=== PATIENT | female | born 1990 | race Caucasian/White ===

== ENCOUNTER 2023-04-27 20:01 | Emergency (ER) | payer OTHER, SELFPAY ==
[2023-04-27 20:22] VITALS: BP 149/103; PULSE 83; RESP 16; TEMP 37.2; O2SAT 98; BMI 40.2
--- NOTE | 2023-04-27 20:48 | ED_ITS ---
HPI - General Adult General Chief complaint: Nausea/Vomiting Stated complaint: Chest pain, nauseous Time Seen by Provider: 04/27/23 20:38 History of Present Illness HPI narrative: This 32-year-old female comes in reporting a couple days of feeling generalized malaise with some nausea and a few episodes of vomiting and diarrhea. She does not report any fevers. She does not have a cough or upper respiratory symptoms. 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 Related Data Home Medications Medication Instructions Recorded Confirmed dextroamphetamine-amphetamine 10 1 tab PO BID 04/27/23 04/27/23 mg tablet norethindrone acetate 1 mg-ethinyl 1 tab PO DAILY 04/27/23 04/27/23 estradiol 20 mcg tablet (Junel) Allergies Allergy/AdvReac Type Severity Reaction Status Date / Time Latex, Natural Rubber Allergy Mild Rash Verified 04/27/23 20:21 Review of Systems Status of ROS: Reports: 10 or more systems reviewed and unremarkable except as noted in History and below Narrative: Constitutional: No fevers, no weight gain or loss. Eyes: No discharge. No vision changes. HENT: No congestion, no sore throat, no ear pain. Cardiovascular: No chest pain, no palpitations. Respiratory: No shortness of breath, no wheezes, no cough. Gastrointestinal: No abdominal pain. Nausea and vomiting with some diarrhea as described above. Genitourinary: No dysuria, no hematuria. Musculoskeletal: Normal range of motion. Skin: No rashes, no pruritis. Neurological: No dizziness, weakness, sensory change, speech change. Endo/Heme/Allergies: No bruising or bleeding. No polydipsia. Pysch: no suicidality, no anxiety, no insomnia. All other systems reviewed and are negative. [facility] Social History Smoking Status: Former smoker How often do you have a drink containing alcohol: never How often do you have six or more drinks on one occasion: Never AUDIT-C Alcohol total score: 0 Non-prescribed substance use: marijuana (any form) Exam Narrative: Exam Narrative: Constitutional: Well-developed, well-nourished, no acute distress. HEENT: Normocephalic, atraumatic. Neck: Normal range of motion. Nontender. Supple. Heart: Regular. No murmurs. Normal rate. Intact distal pulses. Lungs: Clear to auscultation. No chest discomfort. No wheezes, rhonchi, or rales. Abdomen: Normal bowel sounds. Nontender. No rebound tenderness. Genitalia: Deferred. Back: No midline tenderness. Normal range of motion. Extremities: Normal range of motion. No injury. Skin: Intact. No rash. Warm. No erythema or pallor. Neurologic: No altered sensation. No weakness. Alert and oriented. Psychiatric: No suicidality. No anxiety or depression. No insomnia. Nursing notes and vitals signs are reviewed. Const: Vital Signs, click to edit/add: Vital Signs - 24 hr 04/27/23 20:22 Temperature 98.9 F Pulse Rate [Right Pulse Oximeter] 83 Respiratory Rate 16 Blood Pressure [Ri ght Upper Arm] 149/103 H Pulse Oximetry 98 Oxygen Delivery Me thod Room Air Course Vital Signs Vital signs: Initial Vital Signs Temperature 98.9 F 04/27/23 20:22 Temperature Source Temporal Artery Scan 04/27/23 20:22 Pulse Rate 83 04/27/23 20:22 Pulse Rhythm Regular 04/27/23 20:22 Respiratory Rate 16 04/27/23 20:22 Blood Pressure 149/103 H 04/27/23 20:22 Blood Pressure Mean 118 H 04/27/23 20:22 Blood Pressure Position Sitting 04/27/23 20:22 Pulse Oximetry 98 04/27/23 20:22 Oxygen Delivery Method Room Air 04/27/23 20:22 Vital Signs Temperature 98.9 F 04/27/23 20:22 Pulse Rate 83 04/27/23 20:22 Respiratory Rate 16 04/27/23 20:22 Blood Pressure 149/103 H 04/27/23 20:22 Pulse Oximetry 98 04/27/23 20:22 Oxygen Delivery Method Room Air 04/27/23 20:22 Temperature 98.9 F 04/27/23 20:22 Pulse Rate 83 04/27/23 20:22 Respiratory Rate 16 04/27/23 20:22 Blood Pressure 149/103 H 04/27/23 20:22 Pulse Oximetry 98 04/27/23 20:22 Oxygen Delivery Method Room Air 04/27/23 20:22 Medical Decision Making MDM Narrative Medical decision making narrative: This patient has symptoms as described above. Nasal and throat swabs returned negative for COVID, influenza, RSV, and strep. The patient states that she needs a note to return to work and this is provided for her. She is encouraged use [id number] medicines as needed is and directed. She does have some nausea medicine that she can use if needed also. Lab Data Labs: Lab Results 04/27/23 Range/Units 20:15 SARS-CoV-2 (PCR) Negative SARS-CoV-2 (Negative) Influenza Type A (PCR) Negative PCR FLU A (Negative) Influenza Type B (PCR) Negative PCR FLU B (Negative) RSV (PCR) Negative PCR RSV (Negative) Group A Strep DNA NOT DETECTED (Not Detectd) Discharge Plan Discharge Clinical Impression: Gastroenteritis Patient Disposition: Home, Self-Care Condition: Stable Additional Instructions: Use nausea medicine and [id number] medicines as needed and directed. Follow up with MD return if worsening. Prescriptions: No Action dextroamphetamine-amphetamine 10 mg tablet 1 tab PO BID norethindrone ac-eth estradiol [08/05 (21)] 1-20 mg-mcg tablet 1 tab PO DAILY Follow Up/Referrals: Provider,Not a Local [Primary Care Provider] - Stand Alone Forms: [employer] Info Instructions
[2023-04-27 21:04] LABS: Strep A DNA Probe* NOT DETECTED (Not Detectd)
[2023-04-27 21:10] LABS: PCR FLU A Negative PCR FLU A (Negative); PCR FLU B Negative PCR FLU B (Negative); PCR RSV Negative PCR RSV (Negative)
[2023-04-27 21:29] LABS: SARS PCR* Negative SARS-CoV-2 (Negative)
== END 2023-04-27 21:42 | disposition home or self-care (01) ==
PROVIDERS: Emergency Provider Emergency Medicine Emergency Medical Services
DX: K52.9 Noninfective gastroenteritis and colitis, unspecified (principal)
CPT/HCPCS: 87631; 87651; 99282; 99283; 99284

== ENCOUNTER 2024-04-26 11:16 | Outpatient (CLI) | payer OTHER, SELFPAY ==
--- OUTSIDE RECORDS SUMMARY | 2024-04-26 11:19 | XMS_ITS | Clinical Summary ---
Author Organization [facility] Address [place], [place] [address] Care Team Providers Care Manager Secondary Name Role Phone [facility] - Primary C are Provider Allergies Active Allergy Reactions Criticality Noted Date Comments Buspirone Other - Describe In Comment Field High 06/02/2022 Suicidal tendencies Cefaclor Hives,Other - Descri be In Comment Field 11/29/2006 Cerner listed no reactions Latex Rash,Hives,Other - Describe In Comment Field 05/15/2014 Blister like looking things Venlafaxine Other - Describe In Comment Field High 06/02/2022 Suicidal tendencies Medications Medication Sig Dispensed Refills Start Date End Date Status acetaminophen (TYLENOL EXTRA STRGTH) 500 mg tablet Take 500 mg by mouth every 6 hours if needed. Max acetaminophen dose: 4000mg in 24 hrs. Active venlafaxine (EFFEXOR XR) 150 mg Extended-Release capsule Take 150 mg by mouth once daily. Active Adderall XR 20 mg Extended-Release capsule Take 20 mg by mouth once daily. 04/01/2021 Active busPIRone (BUSPAR) 5 mg tablet Take 5 mg by mouth 2 times daily. 04/09/2021 Active melatonin 3 mg tablet Take 3 mg by mouth at bedtime. Active meclizine (ANTIVERT) 25 mg tabletIndications :Lightheadedness Take 1 Tablet (25 mg) by mouth 3 times daily if needed for Vertigo. 20 tablet. 08/07/2021 Active ibuprofen (ADVIL; MOTRIN) 600 mg tabletIndications :Closed avulsion fracture of metatarsal bone of right foot, initial encounter Take 1 Tablet (600 mg) by mouth every 6 hours if needed for Pain. Maximum of 3200 mg in 24 hours. 20 Tablet 10/23/2021 Active norethindrone-eth inyl estradiol (LOESTRIN 08/05; JUNEL 08/05) 1-20 mg-mcg tabletIndications :Dysfunctional uterine bleeding Take 1 Tablet by mouth once daily. 21 Tablet 02/25/2023 Active tiZANidine (ZANAFLEX) 4 mg tabletIndications :Fall, initial encounter,Injury of head, initial encounter,Strain of neck muscle, initial encounter Take 1 Tablet (4 mg) by mouth every 6 hours if needed for Muscle Spasm. 20 Tablet 06/19/2023 Active ibuprofen (ADVIL; MOTRIN) 600 mg tabletIndications :Injury of head, initial encounter,Strain of neck muscle, initial encounter Take 1 Tablet (600 mg) by mouth 4 times daily if needed for Pain. Maximum of 3200 mg in 24 hours. 40 Tablet 06/19/2023 Active lidocaine 5 % topical patchIndications: Strain of neck muscle, initial encounter Apply to intact skin to cover most painful area for max 12hr per 24hr period. 30 Patch 06/19/2023 Active benzonatate (TESSALON) 100 mg capsuleIndication s:Sore throat Take 1 Capsule (100 mg) by mouth 3 times daily if needed for Cough. 15 Capsule 12/10/2023 Active benzonatate (TESSALON) 100 mg capsuleIndication s:Viral URI Take 1 Capsule (100 mg) by mouth 3 times daily if needed for Cough. 15 Capsule 12/10/2023 Active Active Problems Problem Noted Date Diagnosed Date Pre-eclampsia in third trimester 11/10/2015 malposition, delivered, current hospitaliz ation 11/10/2015 Nausea with vomiting 07/27/2012 Borderline personality disorder 07/05/2012 Bipolar I disorder, most rec ent episode (or current) unspecified 10/24/2011 Drug use 10/10/2011 Chlamydia 10/10/2011 Adjustment disorder with depressed mood 04/28/20 09 Attention deficit disorder without mention of hy peractivity 10/29/2007 Otalgia, unspecified 01/01/2007 Overview (01/01/2007): Chronic from scarring from repeated OM and PE tubes, multiple; chronic left perforation Resolved Problems Problem Noted Date Diagnosed Date Resolved Date Morbid obesity 01/01/2007 01/30/2009 Overview (01/01/2007): BMI 38 Encounters Date Type Department Care Team Description 04/23/2024 9:39 PM CDT - 04/23/2024 11:04 PM CDT Emergency [facility] [address] [place] [address] Juantio Rodriguez PA Left flank pain (Primary Dx); Elevated blood pressure reading Discharge Disposition: Home Self Care 04/23/2024 Travel from Last 3 Months Immunizations Name Administration Dates Next Due DTaP 12/04/1996 Hepatitis A (Adult) 04/17/2013 Hepatitis B (Peds) 07/09/1999,01/06/1999, 999 Human Papilloma Virus Vaccine 07/06/2007, 007,12/29/2006 Influenza Virus, Unspecified 04/27/2015 Influenza, IIV3 (Age >=3 years) 05/02/2012 MMR 01/27/2003 Oral Polio Vaccine 12/04/1996 Td (Age >=7 Years) 01/27/2003 Tdap 08/27/2015,03/21/2012 Varicella Vaccine 12/04/1996 Family History Medical History Relation Name Comments Good Health Brother Unknown Father Good Health Mother Asthma Sister from asthm a attack at age 14 Other Sister Lactose intoler ance Relation Name Status Comments Brother Father Mother Sister Social History Tobacco Use Types Packs/Day Years Used Date Smoking Tobacco: Former Cigarettes 0.2 8 0 03/08/2007 - 03/08/2015 Smokeless Tobacco: Former Quit: 03/09/2015 Tobacco Cessation:Counseling Given: No Alcohol Use Standard Drinks/Week Comments No 0 (1 standard drink = 0.6 oz pur e alcohol) Sex and Gender Information Value Date Recorded Sex Assigned at Not on file Gender Identity Not on file Sexual Orientation Not on file Obstetrics History Para Term AB IAB SAB Ectopic Multiple Livin g Live Births 2 1 1 0 1 0 1 0 0 1 1 Date Outcome GA Total Labor Labor/2nd/3rd Weight Sex Type Anes PTL Sonali A1 A5 Name Clin SAB 016 Term 38w 0d 3.52 kg (7 lb 12.2 oz) F C-Sec tion Living 3 6 Delivery Location[facility] Last Filed Vital Signs Vital Sign Reading Time Taken Comments Blood Pressure 149/103 04/23/2024 11:03 PM CDT Pulse 68 04/23/2024 11:03 PM CDT Temperature 36.7 ??C (98.1 ??F) 04/23/2024 9:52 PM CD T Respiratory Rate 16 04/23/2024 9:52 PM CDT Oxygen Saturation 97% 04/23/2024 11:03 PM CDT Inhaled Oxygen Concentration - - Weight 91.6 kg (202 lb) 04/23/2024 9:52 PM CDT Height 154.9 cm (5' 1) 04/23/2024 9:53 PM CDT Body Mass Index 38.17 04/23/2024 9:52 PM CDT Plan of Treatment Health Maintenance Due Date Last Done Comments HIV for age 15-65 11/18/2006 Hepatitis C screening for ag e 18-79 11/18/2009 BMI (ht and wt on same day) for age 18+ 03/05/2017 03/05/2016 Pap test for age 21-65 07/24/2017 07/24/2014 Depression screening for age 12+ 04/14/2022 04/14/2021 COVID-19 vaccine series ( season) 2024 01/21/2021, 12/29/2020 Influenza for age 9-49 03/17/2024 5, 05/02/2012 Tetanus booster 08/27/2025 08/27/2015, 03/21/2012, 01/27/2003 Tdap Completed 08/27/2015, 03/21/2012 Pneumococcal series for age 6-64 Aged Out No longer eligible b ased on patient's age to complete this topic Medical Devices Implanted Type Area Wet Roller Device Identifier Shelf Expiration Date Model / Serial / Lot Mesh Ventral 1.7in Ventralex St W/Strap - [id number] Implanted:Qty: 1 on 02/27/2017 by Sunil Monteiro MD at [facility] N/A: Abdomen [employer] 01/11/2019 [id number] / / [id number] Procedures Procedure Name Priority Date/Time Associated Diagnosis Comments CT ABDOMEN PELVIS STONE PROTOCOL WO STAT 04/23/2024 10:46 PM CDT CBC WITH AUTO DIFFERENTIAL STAT 04/23/2024 10:06 PM CDT LIPASE STAT 04/23/2024 10:06 PM CDT C-REACTIVE PROTEIN STAT 04/23/2024 10 :06 PM CDT BASIC METABOLIC PANEL STAT 04/23/2024 10:06 PM CDT CBC WITH AUTO DIFFERENTIAL STAT 04/23/2024 10:06 PM CDT URINALYSIS MICROSCOPIC STAT 04/23/2024 9:46 PM CDT URINE CLAUDE 04/23/2024 9:46 PM CDT UA W/ SEDIMENT EXAM REFLEXED PER CRITERIA STAT 04/23/2024 9:46 PM CDT EMERGENCY MEDICAL TECHNICIAN/DRIVER THIN PREP PAP SCREEN IMAGED Routine 07/24/2014 3:45 PM [employer] [employer] PIL[facility] Screening for malignant neoplasm of the cervix from Last 3 Months or Most Recently Relevant to Health Maintenance Results * CT ABDOMEN PELVIS STONE PROTOCOL WO (04/23/2024 10:46 PM CDT) Anatomical Region Laterality Modality Abdomen, Pelvis, AORTA, LIVER, SPLEEN Computed Tomography 04/23/2024 11:1 3 PM CDT Impressions 04/23/2024 11:13 PM CDT 1. No acute findings in the abdomen or pelvis on this noncontrast exam. 2. No hydronephrosis or obstructing urinary calculi. Please note that all CT scans at this facility use dose modulation, iterative reconstruction, and/or weight-based dosing when appropriate to reduce radiation dose to as low as reasonably achievable. Dictated by Leda Baldwin MD @ 04/23/2024 11:13:36 PM (Electronically Signed) Narrative 04/23/2024 11:13 PM CDT For Patients: ??As a result of the Century Cures Act, medical imaging exams and procedure reports are released immediately into your electronic medical record. ??You may view this report before your referring provider. ??If you have questions, please contact your health care provider. INDICATION: Flank pain, kidney stone suspected. TECHNIQUE: CT of the abdomen and pelvis without IV contrast. Coronal and sagittal reconstructions. COMPARISON: CT of the abdomen and pelvis 02/21/2016. FINDINGS: Lower chest: Unremarkable. Liver: Unremarkable. Gallbladder and bile ducts: Unremarkable. No biliary dilatation. Spleen: Unremarkable. Pancreas: Unremarkable. Adrenal glands: Unremarkable. Kidneys, Ureters, and Bladder: ??No hydronephrosis. No intrarenal or ureteral calculi. ??No bladder wall thickening or perivesical fat stranding. Reproductive organs: Probable nabothian cysts in the cervix. Unremarkable noncontrast appearance of the adnexa. GI tract/Peritoneum: ??No small bowel dilation. ??Moderate amount of stool throughout the colon. ??Negative appendix. No intraperitoneal free air or fluid. Vasculature: Abdominal aorta is normal in caliber. Lymph nodes: No lymphadenopathy. Abdominal Wall: Status post ventral hernia repair. Bones: Degenerative changes of the spine with exaggerated lumbar lordosis. Degenerative changes of the sacroiliac joints and pubic symphysis. Procedure Note Leda Baldwin MD - 04/23/2024 For Patients: As a result of the Century Cures Act, medical imagingexams and procedure reports are released immediately into your electronicmedical record. You may view this report before your referring provider.If you have questions, please contact your health care provider. INDICATION: Flank pain, kidney stone suspected. TECHNIQUE: CT of the abdomen and pelvis without IV contrast. Coronal and sagittalreconstructions. COMPARISON: CT of the abdomen and pelvis 02/21/2016. FINDINGS: Lower chest: Unremarkable. Liver: Unremarkable. Gallbladder and bile ducts: Unremarkable. No biliary dilatation. Spleen: Unremarkable. Pancreas: Unremarkable. Adrenal glands: Unremarkable. Kidneys, Ureters, and Bladder: No hydronephrosis. No intrarenal orureteral calculi. No bladder wall thickening or perivesical fatstranding. Reproductive organs: Probable nabothian cysts in the cervix. Unremarkablenoncontrast appearance of the adnexa. GI tract/Peritoneum: No small bowel dilation. Moderate amount of stoolthroughout the colon. Negative appendix. No intraperitoneal free air orfluid. Vasculature: Abdominal aorta is normal in caliber. Lymph nodes: No lymphadenopathy. Abdominal Wall: Status post ventral hernia repair. Bones: Degenerative changes of the spine with exaggerated lumbar lordosis.Degenerative changes of the sacroiliac joints and pubic symphysis. IMPRESSION: 1. No acute findings in the abdomen or pelvis on this noncontrast exam. 2. No hydronephrosis or obstructing urinary calculi. Please note that all CT scans at this facility use dose modulation,iterative reconstruction, and/or weight-based dosing when appropriate toreduce radiation dose to as low as reasonably achievable. Dictated by Leda Baldwin MD @ 04/23/2024 11:13:36 PM (Electronically Signed) Juanito DELGADILLO CT * (ABNORMAL) CBC WITH AUTO DIFFERENTIAL (04/23/2024 10:06 PM CDT) WHITE BLOOD COUNT 9.4 4.5 - 11.0 thou/cu mm 04/23/2024 10:[address] [facility] RED BLOOD COUNT 4.26 4.00 - 5.20 mil/cu mm 04/23/2024 10:[address] [facility] HEMOGLOBIN 13.0 12.0 - 16.0 g/dL 04/23/2024 10:[address] [facility] HEMATOCRIT 38.3 33.0 - 51.0 % 04/23/2024 10:[address] [facility] MCV 90 80 - 100 fL 04/23/2024 10:[address] [facility] MCH 30.5 26.0 - 34.0 pg 04/23/2024 10:[address] [facility] MCHC 33.9 32.0 - 36.0 g/dL 04/23/2024 10:[address] [facility] RDW 13.3 11.5 - 15.5 % 04/23/2024 10:[address] [facility] PLATELET COUNT 259 140 - 440 thou/cu mm 04/23/2024 10:[address] [facility] MPV 11.1(H) 6.5 - 11.0 fL 04/23/2024 10:14 PM T [facility] % NEUT 51.0 % 04/23/2024 10:14 PM T [facility] % LYMPH 39.4 % 04/23/2024 10:14 PM T [facility] % MONO 6.2 % 04/23/2024 10:14 PM T [facility] % EOS 3.2 % 04/23/2024 10:[address] [facility] % BASO 0.2 % 04/23/2024 10:[address] [facility] ABSOLUTE NEUTROPHILS 4.8 1.7 - 7.0 thou/cu mm 04/23/2024 10:14 PM T [facility] ABSOLUTE LYMPHOCYTES 3.7(H) 0.9 - 2.9 thou/cu mm 04/23/2024 10:14 PM T [facility] ABSOLUTE MONOCYTES 0.6 <0.9 thou/cu mm 04/23/2024 10:[address] [facility] ABSOLUTE EOSINOPHILS 0.3 <0.5 thou/cu mm 04/23/2024 10:[address] [facility] ABSOLUTE BASOPHILS 0.0 <0.3 thou/cu mm 04/23/2024 10:14 PM T [facility] Blood BLOOD SPECIMEN / Unknown Venipuncture / Unknown 04/23/2024 10:06 PM CDT 04/23/2024 10:11 PM CDT Juanito DELGADILLO HEMATOLOGY [facility] [address] [place] [address] * (ABNORMAL) C-REACTIVE PROTEIN (04/23/2024 10:06 PM CDT) C-REACTIVE PROTEIN 0.5(H) <0.5 mg/dL 04/23/2024 10:29 PM T [facility] Blood BLOOD SPECIMEN / Unknown Venipuncture / Unknown 04/23/2024 10:06 PM CDT 04/23/2024 10:11 PM CDT Juanito DELGADILLO CHEMISTRY Performing Organization Address City/[facility]/ZIP Co de Phone Number [facility] [address] [place] [address] * LIPASE (04/23/2024 10:06 PM CDT) LIPASE 31.0 13.0 - 60.0 IU/L 04/23/2024 10:29 PM T [facility] Blood BLOOD SPECIMEN / Unknown Venipuncture / Unknown 04/23/2024 10:06 PM CDT 04/23/2024 10:11 PM CDT Juanito DELGADILLO CHEMISTRY Performing Organization Address [facility]/ZIP Co de Phone Number [facility] [address] [place] [address] * BASIC METABOLIC PANEL (04/23/2024 10:06 PM CDT) Pathologist [facility] SODIUM 140 136 - 145 mmol/L 04/23/2024 10:[address] [facility] POTASSIUM 4.1 3.5 - 5.1 mmol/L 04/23/2024 10:[address] [facility] CHLORIDE 103 98 - 107 mmol/L 04/23/2024 10:[address] [facility] CO2,TOTAL 28 22 - 29 mmol/L 04/23/2024 10:[address] [facility] ANION GAP 9 5 - 18 04/23/2024 10:[address] [facility] GLUCOSE 95 70 - 99 mg/dL 04/23/2024 10:[address] [facility] CALCIUM 9.8 8.6 - 10.0 mg/dL 04/23/2024 10:[address] [facility] BUN 11 6 - 20 mg/dL 04/23/2024 10:[address] [facility] CREATININE 0.66 0.50 - 0.90 mg/dL 04/23/2024 10:29 PM CDT [facility] BUN/CREAT RATIO 17 10 - 20 10:29 PM T [facility] eGFR >90 >90 mL/min/1.7 3m2 04/23/2024 10:29 PM T [facility] Comment:As of 2021, eG FR is calculated by the CKD-EPI creatinine equation without race adjustment. ??eGFR can be influenced by muscle mass, exercise, and diet. ??The reported eGFR is an estimation only and is only applicable if the renal function is stable. Blood BLOOD SPECIMEN / Unknown Venipuncture / Unknown 04/23/2024 10:06 PM CDT 04/23/2024 10:11 PM CDT Juanito DELGADILLO CHEMISTRY Performing Organization Address [facility] Co de Phone Number [facility] [address] [place] [phone] * (ABNORMAL) URINALYSIS MICROSCOPIC (04/23/2024 9:46 PM CDT) RBC 3-5(A) 0-2, None Seen /HPF 04/23/2024 10:10 PM T [facility] WBC 0-2 0-2, 3-5, None Seen /HPF 04/23/2024 10:[address] [facility] BACTERIA Few None Seen, Rare, Few Bacteria/H PF 04/23/2024 10:10 PM CDT [facility] EPITHELIAL CELLS Few None Seen, Few Epi/HPF 04/23/2024 10:10 PM T [facility] Mucus Present 04/23/2024 10:10 PM T [facility] Urine URINE SPECIMEN / Unknown Non-Blood / Unknown 04/23/2024 9:46 PM CDT 04/23/2024 9:56 PM CDT Juanito DELGADILLO URINE [facility] [address] [place] [address] * (ABNORMAL) UA W/ SEDIMENT EXAM REFLEXED PER CRITERIA (04/23/2024 9:46 PM CDT) COLOR Yellow Yellow Color 04/23/2024 10:[address] [facility] CLARITY Clear Clear Clarity 04/23/2024 10:[address] [facility] SPECIFIC GRAVITY,URINE 1.025 1.010, 1.015, 1.020, 1.025 04/23/2024 10:[address] [facility] PH,URINE 6.0 6.0, 7.0, 8.0, 5.5, 6.5, 7.5, 8.5 04/23/2024 10:[address] [facility] UROBILINOGEN, QUALITATIVE Normal Normal EU/dl 04/23/2024 10:[address] [facility] PROTEIN, URINE Negative Negative mg/dL 04/23/2024 10:[address] [facility] GLUCOSE, URINE Negative Negative mg/dL 04/23/2024 10:[address] [facility] KETONES,URINE Negative Negative mg/dL 04/23/2024 10:[address] [facility] BILIRUBIN,URI NE Negative Negative 04/23/2024 10:[address] [facility] OCCULT BLOOD,URINE Large(A) Negative 04/23/2024 10:[address] [facility] NITRITE Negative Negative 04/23/2024 10:[address] [facility] LEUKOCYTE ESTERASE Negative Negative 04/23/2024 10:[address] [facility] Urine URINE SPECIMEN / Unknown Non-Blood / Unknown 04/23/2024 9:46 PM CDT 04/23/2024 9:56 PM CDT Juanito DELGADILLO URINE [facility] [address] [place] [address] * URINE (04/23/2024 9:46 PM CDT) ,URIN E Negative Negative 04/23/2024 10:08 PM CDT [facility] Urine URINE SPECIMEN / Unknown Non-Blood / Unknown 04/23/2024 9:46 PM CDT 04/23/2024 9:56 PM CDT Juanito DELGADILLO URINE [facility] [address] [place] [address] * EMERGENCY MEDICAL TECHNICIAN/DRIVER THIN PREP PAP SCREEN IMAGED (07/24/2014 3:45 PM [facility] PIL[facility]) EMERGENCY MEDICAL TECHNICIAN/DRIVER CYTOLOGY See Anatomic Pathology case 07/30/2014 11:04 AM [facility]SP[facility] PILOT [facility] Specimen (specimen) (Cervical/Vagina l) Non-Blood / Unknown 07/24/2014 3:45 PM [facility] PILOT 07/25/2014 10:09 AM [facility]SP[employer] PILOT Shonda Duncan José PATHOLOGY/CYTOLOGY [facility] [address] [place] [address], from Last 3 Months or Most Recently Relevant to Health Maintenance Advance Directives * Full Code (Latest Code Status on File) Date Activated Date Inactivated Comments 04/14/2021 8:44 PM 04/15/2021 12:24 PM Question Answer Comments Code Status Discussion: Not Discussed * Full Code Date Activated Date Inactivated Comments 02/27/2017 12:58 PM 02/27/2017 4:52 PM * Full Code Date Activated Date Inactivated Comments 02/27/2017 10:05 AM 02/27/2017 12:58 PM * Full Code Date Activated Date Inactivated Comments 03/28/2016 9:13 AM 03/29/2016 2:29 AM * Full Code Date Activated Date Inactivated Comments 11/08/2015 11:08 AM 11/11/2015 1:19 PM Care Teams Manager Secondary Relationship Specialty [facility] [address] [facility] [place] [address] PCP - General 04/23/24
== END 2024-04-26 11:17 | disposition home or self-care (01) ==
PROVIDERS: Visit Provider Physician Assistant
DX: N93.8 Other specified abnormal uterine and vaginal bleeding (principal)
CPT/HCPCS: 84443

== ENCOUNTER 2024-05-02 09:58 | Outpatient (CLI) | payer OTHER, SELFPAY ==
--- NOTE | 2024-05-02 10:00 | CRLHL7_ITS ---
For Patients: As a result of the Cures Act, medical imaging exams and procedure reports are released immediately into your electronic medical record. You may view this report before your referring provider. If you have questions, please contact your health care provider. INDICATION: Prolonged menstrual bleeding. TECHNIQUE: Ultrasound pelvis transabdominal. COMPARISON: None. FINDINGS: Uterus: 10.5 x 4.8 x 6.0 cm. Normal echotexture of the myometrium. Small nabothian cysts. No suspicious masses. Endometrium: Transvaginal imaging was performed to better evaluate the endometrium. Endometrial thickness measures 10.2 mm. No sign of endometrial mass or fluid. Right ovary measures 1.8 x 1.0 x 2.4 cm and left ovary measures 2.1 x 1.0 x 1.5 cm. No ovarian or adnexal masses. Cul-de-sac: Trace free fluid. IMPRESSION: Homogeneous endometrium measures 10.2 millimeters. No focal lesion. Normal sonographic appearance of the ovaries. Dictated by Evgeny Garcia MD @ 05/06/2024 1:29:17 PM (Electronically Signed)
--- OUTSIDE RECORDS SUMMARY | 2024-05-02 10:04 | XMS_ITS | Clinical Summary ---
Author Organization [facility] Address [place], [place] [address] Care Team Providers Care Laboratory Helper Name Role Phone [facility] - Primary C are Provider Allergies [...] Encounters Date Type Department Care Team Description 04/26/2024 Lab Requisition [facility] [phone] Cintia Erickson PA-C 04/23/2024 9:39 PM CDT - 04/23/2024 11:04 PM CDT Emergency [facility] [address] [place] [address] Juanito Rodriguez PA Left flank pain (Primary Dx); [...] F C-Sec tion Living 3 6 Delivery Location:[facility] Last Filed Vital Signs Vital Sign [...] this topic Medical Devices Implanted Type Area Videotape Recording Engineer Device Identifier Shelf Expiration Date Model / Serial / Lot Mesh Ventral 1.7in Ventralex St W/Strap - [id number] Implanted:Qty: 1 on 02/27/2017 by Sunil Monteiro MD at [facility] N/A: Abdomen [employer] 01/11/2019 [id number] / / [id number] Procedures Procedure Name Priority Date/Time Associated Diagnosis Comments LAB TRACKING EVENT Routine 04/26/2024 11 :45 AM CDT PATH TISSUE EXAM Routine 04/26/2024 11:[address] ABDOMEN PELVIS STONE PROTOCOL WO STAT [...] PER CRITERIA STAT 04/23/2024 9:46 PM CDT LPN MEDICAL ASSISTANT THIN PREP PAP SCREEN IMAGED Routine 07/24/2014 3:45 PM CIRCULATION CREW LEADER Screening for malignant neoplasm of the cervix from Last 3 Months or Most Recently Relevant to Health Maintenance Results * LAB TRACKING EVENT (04/26/2024 11:45 AM CDT) Other (Other) Client Collect / Unknown 04/26/2024 11:45 AM CDT 04/26/2024 9:44 PM CDT October Selma Erickson PA-C LAB BILL ONLY [facility] [address] [place] [address], * PATH TISSUE EXAM (04/26/2024 11:45 AM CDT) Case Report Pathology Report ?Case: [id number] ? Authorizing Provider: ??Cintia Erickson PA-C ?Collected: ? 04/26/2024 1145 ? Ordering Location: ? [facility] ?Received: ?04/27/2024 0541 ? Pathologist: ? Krista Guaman MD ? Specimen: ?Endometrial Biopsy ? 04/30/2024 12:21 PM CDT [facility] Final Diagnosis A) ENDOMETRIUM, BIOPSY: 1. Proliferative endometrium 2. Negative for chronic endometritis 3. Negative for hyperplasia, atypia, and malignancy 04/30/2024 12:21 PM CDT [facility] Clinical Information Menorrhagia 04/30/2024 12:21 PM CDT [facility] Gross Description A) Received in formalin, labeled with the patient's name and , is a 1.0 cm aggregate of blood tinged mucous. The specimen is entirely submitted in one cassette. STN 04/29/2024 04/30/2024 12:21 PM CDT [facility] Microscopic Description The final diagnosis is based on microscopic examination of appropriate sections of all specimens. 04/30/2024 12:21 PM CDT [facility] Additional Information Interpreted at [facility], Central Laboratory - [address] [facility] [address], [place] [address] 04/30/2024 12:21 PM CDT [facility] Other (Endometrial Biopsy) 04/26/2024 11:45 AM CDT 04/27/2024 5:41 AM CDT Cintia Erickson PA-C PATHOLOGY/[facility] [address] [place] [address], [place] * CT ABDOMEN PELVIS STONE PROTOCOL WO [...] For Patients: ??As a result of the 21st Century Cures Act, medical imaging exams and [...] For Patients: As a result of the Cures Act, medical imagingexams and procedure reports [...] - 11.0 thou/cu mm 04/23/2024 10:14 PM [facility] RED BLOOD COUNT 4.26 4.00 - 5.20 mil/cu mm 04/23/2024 10:14 PM [facility] HEMOGLOBIN 13.0 12.0 - 16.0 g/dL 04/23/2024 10:14 PM [facility] HEMATOCRIT 38.3 33.0 - 51.0 % 04/23/2024 10:14 PM [facility] MCV 90 80 - 100 fL 04/23/2024 10:14 PM [facility] MCH 30.5 26.0 - 34.0 pg 04/23/2024 10:14 PM [facility] MCHC 33.9 32.0 - 36.0 g/dL 04/23/2024 10:14 PM [facility] RDW 13.3 11.5 - 15.5 % 04/23/2024 10:14 PM [facility] PLATELET COUNT 259 140 - 440 thou/cu mm 04/23/2024 10:14 PM [facility] MPV 11.1(H) 6.5 - 11.0 fL 04/23/2024 10:14 PM [facility] % NEUT 51.0 % 04/23/2024 10:14 PM [facility] % LYMPH 39.4 % 04/23/2024 10:14 PM CDT [facility] % MONO 6.2 % 04/23/2024 10:14 PM CDT [facility] % EOS 3.2 % 04/23/2024 10:14 PM CDT [facility] % BASO 0.2 % 04/23/2024 10:14 PM CDT [facility] ABSOLUTE NEUTROPHILS 4.8 1.7 - 7.0 thou/cu mm 04/23/2024 10:14 PM CDT [facility] ABSOLUTE LYMPHOCYTES 3.7(H) 0.9 - 2.9 thou/cu mm 04/23/2024 10:14 PM CDT [facility] ABSOLUTE MONOCYTES 0.6 <0.9 thou/cu mm 04/23/2024 10:14 PM CDT [facility] ABSOLUTE EOSINOPHILS 0.3 <0.5 thou/cu mm 04/23/2024 10:14 PM T [facility] ABSOLUTE BASOPHILS 0.0 <0.3 thou/cu mm 04/23/2024 10:14 PM CDT [facility] Blood BLOOD SPECIMEN / Unknown Venipuncture / Unknown 04/23/2024 10:06 PM CDT 04/23/2024 10:11 PM CDT Juanito DELGADILLO HEMATOLOGY [facility] [address] [place] [address] * (ABNORMAL) C-REACTIVE PROTEIN (04/23/2024 10:06 PM CDT) C-REACTIVE PROTEIN 0.5(H) <0.5 mg/dL 04/23/2024 10:29 PM CDT [facility] Blood BLOOD SPECIMEN / Unknown Venipuncture / Unknown 04/23/2024 10:06 PM CDT 04/23/2024 10:11 PM CDT Juanito DELGADILLO CHEMISTRY [facility] [address] [place] [address] * LIPASE (04/23/2024 10:06 PM CDT) Pathologist [facility] LIPASE 31.0 13.0 - 60.0 IU/L 04/23/2024 10:29 PM [facility] Blood BLOOD SPECIMEN / Unknown Venipuncture / Unknown 04/23/2024 10:06 PM CDT 04/23/2024 10:11 PM CDT Juanito DELGADILLO CHEMISTRY [facility] [address] [place] [address] * BASIC METABOLIC PANEL (04/23/2024 10:06 PM CDT) Pathologist [facility] SODIUM 140 136 - 145 mmol/L 04/23/2024 10:29 PM [facility] POTASSIUM 4.1 3.5 - 5.1 mmol/L 04/23/2024 10:29 PM [facility] CHLORIDE 103 98 - 107 mmol/L 04/23/2024 10:29 PM [facility] CO2,TOTAL 28 22 - 29 mmol/L 04/23/2024 10:29 PM [facility] ANION GAP 9 5 - 18 04/23/2024 10:29 PM [facility] GLUCOSE 95 70 - 99 mg/dL 04/23/2024 10:29 PM [facility] CALCIUM 9.8 8.6 - 10.0 mg/dL 04/23/2024 10:29 PM [facility] BUN 11 6 - 20 mg/dL 04/23/2024 10:29 PM [facility] CREATININE 0.66 0.50 - 0.90 mg/dL 04/23/2024 10:29 PM [facility] BUN/CREAT RATIO 17 10 - 20 10:29 PM [facility] eGFR >90 >90 mL/min/1.7 3m2 04/23/2024 10:29 PM CDT [facility] Comment:As of 2021, eG FR is [...] CDT Juanito DELGADILLO CHEMISTRY Performing Organization Address City/[facility]/ZIP Co de Phone Number [facility] [address] [place], [place] [phone] * (ABNORMAL) URINALYSIS MICROSCOPIC (04/23/2024 9:46 PM CDT) RBC 3-5(A) 0-2, None Seen /HPF 04/23/2024 10:10 PM CDT [facility] WBC 0-2 0-2, 3-5, None Seen /HPF 04/23/2024 10:10 PM CDT [facility] BACTERIA Few None Seen, Rare, Few Bacteria/H PF 04/23/2024 10:10 PM CDT [facility] EPITHELIAL CELLS Few None Seen, Few Epi/HPF 04/23/2024 10:10 PM CDT [facility] Mucus Present 04/23/2024 10:10 PM CDT [facility] Urine URINE SPECIMEN / Unknown Non-Blood / Unknown 04/23/2024 9:46 PM CDT 04/23/2024 9:56 PM CDT Juanito DELGADILLO URINE Performing Organization Address City/[facility]/ZIP Co de Phone Number [facility] [address] [place], [place] [phone] * (ABNORMAL) UA W/ SEDIMENT EXAM REFLEXED PER CRITERIA (04/23/2024 9:46 PM CDT) COLOR Yellow Yellow Color 04/23/2024 10:09 PM [facility] CLARITY Clear Clear Clarity 04/23/2024 10:09 PM [facility] SPECIFIC GRAVITY,URINE 1.025 1.010, 1.015, 1.020, 1.025 04/23/2024 10:09 PM [facility] PH,URINE 6.0 6.0, 7.0, 8.0, 5.5, 6.5, 7.5, 8.5 04/23/2024 10:09 PM [facility] UROBILINOGEN, QUALITATIVE Normal Normal EU/dl 04/23/2024 10:09 PM [facility] PROTEIN, URINE Negative Negative mg/dL 04/23/2024 10:09 PM [facility] GLUCOSE, URINE Negative Negative mg/dL 04/23/2024 10:09 PM [facility] KETONES,URINE Negative Negative mg/dL 04/23/2024 10:09 PM [facility] BILIRUBIN,URI NE Negative Negative 04/23/2024 10:09 PM [facility] OCCULT BLOOD,URINE Large(A) Negative 04/23/2024 10:09 PM [facility] NITRITE Negative Negative 04/23/2024 10:09 PM [facility] LEUKOCYTE ESTERASE Negative Negative 04/23/2024 10:09 PM [facility] Urine URINE SPECIMEN / Unknown Non-Blood / Unknown 04/23/2024 9:46 PM CDT 04/23/2024 9:56 PM CDT Juanito DELGADILLO URINE [facility] [address] [place] [address] * URINE (04/23/2024 9:46 PM CDT) ,URIN E Negative Negative 04/23/2024 10:08 PM [facility] Urine URINE SPECIMEN / Unknown Non-Blood / Unknown 04/23/2024 9:46 PM CDT 04/23/2024 9:56 PM CDT Juanito DELGADILLO URINE [facility] [address] [place] [address] * LPN MEDICAL ASSISTANT THIN PREP PAP SCREEN IMAGED (07/24/2014 3:45 PM CIRCULATION CREW LEADER) LPN MEDICAL ASSISTANT CYTOLOGY See Anatomic Pathology case 07/30/2014 11:04 AM CIRCULATION CREW LEADER [facility] Specimen (specimen) (Cervical/Vagina l) Non-Blood / Unknown 07/24/2014 3:45 PM CIRCULATION CREW LEADER 07/25/2014 10:09 AM CIRCULATION CREW LEADER Shonda Duncan José PATHOLOGY/CYTOLOGY [facility] [address] [place] [address], from Last 3 Months or Most Recently [...] 11:08 AM 11/11/2015 1:19 PM Care Teams Laboratory Helper Relationship Specialty [facility] [address] [place] [address] PCP - General 04/23/24
== END 2024-05-02 09:59 | disposition home or self-care (01) ==
LOC: US 09:59
PROVIDERS: Visit Provider Physician Assistant
DX: N93.8 Other specified abnormal uterine and vaginal bleeding (principal); R93.89 Abnormal findings on diagnostic imaging of other specified body structures
CPT/HCPCS: 76830; 76856

== ENCOUNTER 2024-05-17 08:45 | Outpatient (CLI) | payer OTHER, SELFPAY ==
--- OUTSIDE RECORDS SUMMARY | 2024-05-17 08:49 | XMS_ITS | Clinical Summary ---
Author Organization [facility] Address [place], [place] [address] Care Team Providers Care Vehicle Operator Technician Name Role Phone [facility] - Primary C are Provider Allergies Active [...] Department Care Team Description 04/26/2024 Lab Requisition [facility] [phone] Cintia Erickson PA-C 04/23/2024 9:39 PM CDT - 04/23/2024 11:04 PM CDT Emergency [facility] [address] [place] [address] Juanito Rodriguez PA Left flank pain (Primary [...] F C-Sec tion Living 3 6 Delivery Location:[facility] Last Filed Vital Signs Vital Sign [...] this topic Medical Devices Implanted Type Area Solutions Market Consultant Device Identifier Shelf Expiration Date Model / Serial / Lot Mesh Ventral 1.7in Ventralex St W/Strap - [id number] Implanted:Qty: 1 on 02/27/2017 by Sunil Monteiro MD at [facility] N/A: Abdomen [employer] 01/11/2019 [id number] / / [id number] Procedures Procedure Name Priority Date/Time Associated Diagnosis [...] PER CRITERIA STAT 04/23/2024 9:46 PM CDT DRAPERY CUTTER MACHINE THIN PREP PAP SCREEN IMAGED Routine 07/24/2014 3:45 PM SUBSTITUTE NURSE Screening for malignant neoplasm of the cervix from Last 3 Months or Most Recently Relevant to Health Maintenance Results * LAB TRACKING EVENT (04/26/2024 11:45 AM CDT) Other (Other) Client Collect / Unknown 04/26/2024 11:45 AM CDT 04/26/2024 9:44 PM CDT October Selma Erickson PA-C [facility] [address] [place] [address], * PATH TISSUE EXAM (04/26/2024 11:45 AM CDT) Case Report Pathology Report ?Case: [id number] ? Authorizing Provider: ??Cintia Erickson PA-C ?Collected: ? 04/26/2024 1145 ? Ordering Location: ? [facility] ?Received: ?04/27/2024 0541 ? Pathologist: ? Krista Guaman MD ? Specimen: ?Endometrial Biopsy ? 04/30/2024 12:21 PM CDT [facility]AT[facility] Final Diagnosis A) ENDOMETRIUM, BIOPSY: 1. Proliferative endometrium 2. Negative for chronic endometritis 3. Negative for hyperplasia, atypia, and malignancy 04/30/2024 12:21 PM CDT [facility] Clinical Information Menorrhagia 04/30/2024 12:21 PM CDT [facility] Gross Description A) Received in formalin, labeled with the patient's name and , is a 1.0 cm aggregate of blood tinged mucous. The specimen is entirely submitted in one cassette. STN 04/29/2024 04/30/2024 12:[address] [facility] Microscopic Description The final diagnosis is based on microscopic examination of appropriate sections of all specimens. 04/30/2024 12:21 PM CDT [facility] Additional Information Interpreted at [facility], Central Laboratory - [address] [facility] [address] [address] 04/30/2024 12:[address] [facility] Other (Endometrial Biopsy) 04/26/2024 11:45 AM CDT 04/27/2024 5:41 AM CDT Cintia Erickson PA-C PATHOLOG[facility] [address] [place] [address], [place] * CT ABDOMEN PELVIS STONE PROTOCOL [...] - 11.0 thou/cu mm 04/23/2024 10:14 PM [facility] RED BLOOD COUNT 4.26 4.00 - 5.20 mil/cu mm 04/23/2024 10:14 PM [facility] HEMOGLOBIN 13.0 12.0 - 16.0 g/dL 04/23/2024 10:14 PM [facility] HEMATOCRIT 38.3 33.0 - 51.0 % 04/23/2024 10:14 PM [facility] MCV 90 80 - 100 fL 04/23/2024 10:14 PM [facility] MCH 30.5 26.0 - 34.0 pg 04/23/2024 10:14 PM [facility] MCHC 33.9 32.0 - 36.0 g/dL 04/23/2024 10:14 PM [facility] RDW 13.3 11.5 - 15.5 % 04/23/2024 10:14 PM [facility] PLATELET COUNT 259 140 - 440 thou/cu mm 04/23/2024 10:14 PM [facility] MPV 11.1(H) 6.5 - 11.0 fL 04/23/2024 10:14 PM [facility] % NEUT 51.0 % 04/23/2024 10:14 PM [facility] % LYMPH 39.4 % 04/23/2024 10:14 PM CDT [facility] % MONO 6.2 % 04/23/2024 10:14 PM CDT [facility] % EOS 3.2 % 04/23/2024 10:14 PM CDT [facility] % BASO 0.2 % 04/23/2024 10:14 PM CDT [facility] ABSOLUTE NEUTROPHILS 4.8 1.7 - 7.0 thou/cu mm 04/23/2024 10:14 PM CDT [facility] ABSOLUTE LYMPHOCYTES 3.7(H) 0.9 - 2.9 thou/cu mm 04/23/2024 10:14 PM CDT [facility] ABSOLUTE MONOCYTES 0.6 <0.9 thou/cu mm 04/23/2024 10:14 PM CDT [facility] ABSOLUTE EOSINOPHILS 0.3 <0.5 thou/cu mm 04/23/2024 10:14 PM T [facility] ABSOLUTE BASOPHILS 0.0 <0.3 thou/cu mm 04/23/2024 10:14 PM CDT [facility] Blood BLOOD SPECIMEN / Unknown Venipuncture / Unknown 04/23/2024 10:06 PM CDT 04/23/2024 10:11 PM CDT Juanito DELGADILLO HEMATOLOGY [facility] [address] [place] [address] * (ABNORMAL) C-REACTIVE PROTEIN (04/23/2024 10:06 PM CDT) C-REACTIVE PROTEIN 0.5(H) <0.5 mg/dL 04/23/2024 10:29 PM CDT [facility] Blood BLOOD SPECIMEN / Unknown Venipuncture / Unknown 04/23/2024 10:06 PM CDT 04/23/2024 10:11 PM CDT Juanito DELGADILLO CHEMISTRY [facility] [address] [place] [address] * LIPASE (04/23/2024 10:06 PM CDT) Pathologist [facility] LIPASE 31.0 13.0 - 60.0 IU/L 04/23/2024 10:29 PM [facility] Blood BLOOD SPECIMEN / Unknown Venipuncture / Unknown 04/23/2024 10:06 PM CDT 04/23/2024 10:11 PM CDT Juanito DELGADILLO CHEMISTRY [facility] [address] [place] [address] * BASIC METABOLIC PANEL (04/23/2024 10:06 PM CDT) Pathologist [facility] SODIUM 140 136 - 145 mmol/L 04/23/2024 10:29 PM [facility] POTASSIUM 4.1 3.5 - 5.1 mmol/L 04/23/2024 10:29 PM [facility] CHLORIDE 103 98 - 107 mmol/L 04/23/2024 10:29 PM [facility] CO2,TOTAL 28 22 - 29 mmol/L 04/23/2024 10:29 PM [facility] ANION GAP 9 5 - 18 04/23/2024 10:29 PM [facility] GLUCOSE 95 70 - 99 mg/dL 04/23/2024 10:29 PM [facility] CALCIUM 9.8 8.6 - 10.0 mg/dL 04/23/2024 10:29 PM [facility] BUN 11 6 - 20 mg/dL 04/23/2024 10:29 PM [facility] CREATININE 0.66 0.50 - 0.90 mg/dL 04/23/2024 10:29 PM [facility] BUN/CREAT RATIO 17 10 - 20 10:29 PM [facility] eGFR >90 >90 mL/min/1.7 3m2 04/23/2024 10:29 PM CDT [facility] Comment:As of 2021, eG FR [...] CDT Juanito DELGADILLO CHEMISTRY Performing Organization Address City/[facility]/ZIP Co de Phone Number [facility] [address] [place], [place] [phone] * (ABNORMAL) URINALYSIS MICROSCOPIC (04/23/2024 9:46 PM CDT) RBC 3-5(A) 0-2, None Seen /HPF 04/23/2024 10:10 PM CDT [facility] WBC 0-2 0-2, 3-5, None Seen /HPF 04/23/2024 10:10 PM CDT [facility] BACTERIA Few None Seen, Rare, Few Bacteria/H PF 04/23/2024 10:10 PM CDT [facility] EPITHELIAL CELLS Few None Seen, Few Epi/HPF 04/23/2024 10:10 PM CDT [facility] Mucus Present 04/23/2024 10:10 PM CDT [facility] Urine URINE SPECIMEN / Unknown Non-Blood / Unknown 04/23/2024 9:46 PM CDT 04/23/2024 9:56 PM CDT Juanito DELGADILLO URINE Performing Organization Address City/[facility]/ZIP Co de Phone Number [facility] [address] [place], [place] [phone] * (ABNORMAL) UA W/ SEDIMENT EXAM REFLEXED PER CRITERIA (04/23/2024 9:46 PM CDT) COLOR Yellow Yellow Color 04/23/2024 10:09 PM [facility] CLARITY Clear Clear Clarity 04/23/2024 10:09 PM [facility] SPECIFIC GRAVITY,URINE 1.025 1.010, 1.015, 1.020, 1.025 04/23/2024 10:09 PM [facility] PH,URINE 6.0 6.0, 7.0, 8.0, 5.5, 6.5, 7.5, 8.5 04/23/2024 10:09 PM [facility] UROBILINOGEN, QUALITATIVE Normal Normal EU/dl 04/23/2024 10:09 PM [facility] PROTEIN, URINE Negative Negative mg/dL 04/23/2024 10:09 PM [facility] GLUCOSE, URINE Negative Negative mg/dL 04/23/2024 10:09 PM [facility] KETONES,URINE Negative Negative mg/dL 04/23/2024 10:09 PM [facility] BILIRUBIN,URI NE Negative Negative 04/23/2024 10:09 PM [facility] OCCULT BLOOD,URINE Large(A) Negative 04/23/2024 10:09 PM [facility] NITRITE Negative Negative 04/23/2024 10:09 PM [facility] LEUKOCYTE ESTERASE Negative Negative 04/23/2024 10:09 PM [facility] Urine URINE SPECIMEN / Unknown Non-Blood / Unknown 04/23/2024 9:46 PM CDT 04/23/2024 9:56 PM CDT Juanito DELGADILLO URINE [facility] [address] [place] [address] * URINE (04/23/2024 9:46 PM CDT) ,URIN E Negative Negative 04/23/2024 10:08 PM [facility] Urine URINE SPECIMEN / Unknown Non-Blood / Unknown 04/23/2024 9:46 PM CDT 04/23/2024 9:56 PM CDT Juanito DELGADILLO URINE [facility] [address] [place] [address] * DRAPERY CUTTER MACHINE THIN PREP PAP SCREEN IMAGED (07/24/2014 3:45 PM SUBSTITUTE NURSE) DRAPERY CUTTER MACHINE CYTOLOGY See Anatomic Pathology case 07/30/2014 11:04 AM SUBSTITUTE NURSE [facility] Specimen (specimen) (Cervical/Vagina l) Non-Blood / Unknown 07/24/2014 3:45 PM SUBSTITUTE NURSE 07/25/2014 10:09 AM SUBSTITUTE NURSE Shonda Duncan José PATHOLOGY/CYTOLOGY [facility] [address] [place] [address], from Last 3 Months or Most Recently [...] 11:08 AM 11/11/2015 1:19 PM Care Teams Vehicle Operator Technician Relationship Specialty [facility] [address] [place] [address] PCP - General 04/23/24
== END 2024-05-17 08:46 | disposition home or self-care (01) ==
PROVIDERS: Visit Provider Physician Assistant
DX: N93.8 Other specified abnormal uterine and vaginal bleeding (principal)
CPT/HCPCS: 82728; 83540

== ENCOUNTER 2024-09-04 14:18 | Outpatient (CLI) | payer OTHER, SELFPAY | END 2024-09-04 14:19 | disposition home or self-care (01) | LOC: NFLDREF 09-09 15:49 | PROVIDERS: Visit Provider Physician Assistant | DX: N93.8 Other specified abnormal uterine and vaginal bleeding (principal) | CPT/HCPCS: 82728 ==

== ENCOUNTER 2024-09-06 11:39 | Outpatient (CLI) | payer OTHER, SELFPAY | END 2024-09-06 11:40 | disposition home or self-care (01) | LOC: NFLDREF 09-10 14:05 | PROVIDERS: Visit Provider Obstetrics & Gynecology | DX: R30.0 Dysuria (principal); N93.8 Other specified abnormal uterine and vaginal bleeding; R35.0 Frequency of micturition | CPT/HCPCS: 87086 ==

== ENCOUNTER 2024-12-13 19:39 | Emergency (ER) | payer OTHER, SELFPAY ==
--- OUTSIDE RECORDS SUMMARY | 2024-10-29 08:30 | XMS_ITS ---
Author Organization [facility] Address [address] [place] [address] [address] [place] [address] Care Team Providers Care Miniature Set Constructor Name Role Phone López Nazario Primary Care Provider Lior SONI PhD, Ino Unavailable Unavailable Max Mak Unavailable [phone] REASON FOR VISIT Low Back Pain Encounters Encounter Location Date Provider Diagnosis [address] [facility] [address] [facility] [address] [place] [address] 10/29/2024 Max Mak Plan Of Treatment No Information Progress Notes * Yissel GARCIA JDOB:[birth year] (34 yo F)Acc No.[id number]:10/29/2024 Progress Notes Patient: Yissel COURTNEY Provider: Charly Mak PA-C :1990 A ge:33 Y S ex:Female Date:10/29/2024 Phone: Address:[address] [place] [address] [place], [phone] Pcp:López Nazario Subjective: * Chief Complaints: * 1 . Low Back Pain. * Medical History: Objective: * Vitals: Assessment: Plan: * Treatment: * Billing Information: * Visit Code: * Procedure Codes: * Electronic signature of Devonte Mak PA-C on 12/13/2024 at 08:47 PM CDT Sign off status: Pending * Provider: Charly Mak PA-C Date: 0 10/29/2024 Generated for Printi ng/Faxing/eTransmitting on: 0 12/13/2024 08:47 PM CDT
--- OUTSIDE RECORDS SUMMARY | 2024-11-05 06:00 | XMS_ITS ---
Author Organization [facility] Address [address] [place] [address] [address] [place] [address] Care Team Providers Care Change Management Analyst Name Role Phone López Nazario Primary Care Provider Lior SONI PhD, Ino Unavailable Unavailable REASON FOR VISIT iv conscious sedation left S1 TFE and right L4-5 TFE Encounters Encounter Location Date Provider Diagnosis [address] [facility] [address] [facility] [address] [place] [address] 11/05/2024 López Nazario Radiculopathy, lumbosacral region M54.17 Assessments Encounter Date Diagnosis (ICD Code) Assessment Notes Treatment Notes Treatment Clinical Notes Section Notes 11/05/2024 Radiculopathy, lumbosacral region (ICD-10 - M54.17) Plan Of Treatment No Information Progress Notes * Diane GARCIAcole JDOB:[birth year] (33 yo F)Acc No.[id number]:11/05/2024 Patient: Yissel COURTNEY Provider: Lucía Nazario M.D. :1990 A ge:33 Y S ex:Female Date:11/05/2024 Phone: Address:[address] [place] [address] STEFANIE ESPINO [phone] * Billing Information: * Visit Code: * Procedure Codes: 43535 Transforaminal L or S single. Modifiers: [place] [address] Transforaminal L or S each addl lvl. Modifiers: LT J2250 Midazolam Hydrochloride. Units: 6.00. Modifiers: JZ A4649 IV Starter Kit. A4209 5 cc - 19 cc gauge syringe. A4930 Gloves, size 8. Units: 2.00. A4616 IV Tubing. A4615 O2 Mask. A4215 Julian only Sterile any size each. Units: 2.00. A4550 Spinal Support Tray. A4216 NACl 0/9% PF 10ml/vial. Units: 3.00. Q9967 Omnipaque 300 mgl/mL. Units: 3.00. J0665 Inj, bupivacaine, nos, 0.5mg. J3301 Kenalog 40 mg/ml. Units: 2.00. * Sign off status: Completed true * Provider: Lucía Nazario M.D. Date: 0 11/05/2024 Generated for Sarah sandhu/Vitaly/Alfredoitting on: 0 12/13/2024 08:47 PM CDT
[2024-12-13 20:02] VITALS: BP 136/89; PULSE 82; RESP 18; TEMP 36.7; O2SAT 98; BMI 41.9
--- NOTE | 2024-12-13 20:31 | ED.GENADULT ---
HPI - General Adult General Chief complaint: Dental/Oral/Mouth Injury/Pain Stated complaint: possible infected tooth Time Seen by Provider: 12/13/24 20:30 History of Present Illness HPI narrative: Patient here with swelling and pain in lower jaw from tooth. She has a root canal scheduled in two weeks but will call tomorrow and see if it can be moved up. Has used orajel , ibuprofen, Tylenol, and ice pack. 34-year-old woman presenting to emergency depart with concern of infected tooth; jaw pain and swelling. Does see local dental clinic and is scheduled for root canal in a couple of weeks. She has tried [id number] treatment with Orajel ibuprofen acetaminophen and ice packs. Bit into a sandwich today work with marked increase in pain. Pain has continued. Pain is exacerbated primarily with pressure. No fever. No drainage. Related Data Home Medications ?Medication ?Instructions ?Recorded ?Confirmed dextroamphetamine-amphetamine 10 1 tab PO BID 04/27/23 09/06/24 mg tablet gabapentin 100 mg capsule 100 mg PO QDAY 04/26/24 09/06/24 Previous Rx's ?Medication ?Instructions ?Recorded ferrous sulfate 325 mg (65 mg 325 mg PO Q OTHER DAY #90 tabs 05/21/24 iron) tablet,delayed release norethindrone (contraceptive) 0.35 0.35 mg PO QDAY #84 tabs 12/13/24 mg tablet (Kathy) Allergies Allergy/AdvReac Type Severity Reaction Status Date / Time buspirone Allergy Severe suicidal Verified 09/06/24 10:44 tendencies venlafaxine Allergy Severe suicidal Verified 09/06/24 10:44 tendancies Latex, Natural Rubber Allergy Mild Rash Verified 09/06/24 10:44 Cephalosporins Allergy Unknown Verified 09/06/24 10:44 Review of Systems Status of ROS: Reports: 6 or more systems reviewed and unremarkable except as noted in History and below PFSH PFS Surgical History History of hernia surgery ?Z98.890 - Other specified postprocedural states (ICD-10) ?Z87.19 - Personal history of other diseases of the digestive system (ICD-10) History of ?Z98.891 - History of uterine scar from previous surgery (ICD-10) Family History Mother Thyroid disease FH: mental illness 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 Hair is dyed pinkish color. Has a number of extracted teeth. Palpable swelling in the left lower jaw but no place that I think would be amenable to drainage for an abscess. Tooth in question appears to be tooth 7. Which is decayed at the base and anterior aspect is missing near the gumline. No cervical lymphadenopathy. Neck is supple. No erythema visible externally. Const: Vital Signs, click to edit/add: Vital Signs - 24 hr 12/13/24 20:02 Temperature 98.1 F Pulse Rate [Pulse Oximeter] 82 Respiratory Rate 18 Blood Pressure [Ri t Upper Arm] 136/89 Pulse Oximetry 98 Oxygen Delivery Me thod Room Air Course Vital Signs Vital signs: Initial Vital Signs Temperature 98.1 F 12/13/24 20:02 Temperature Source Temporal Artery Scan 12/13/24 20:02 Pulse Rate 82 12/13/24 20:02 Respiratory Rate 18 12/13/24 20:02 Blood Pressure 136/89 12/13/24 20:02 Blood Pressure Mean 104 12/13/24 20:02 Blood Pressure Position Sitting 12/13/24 20:02 Pulse Oximetry 98 12/13/24 20:02 Oxygen Delivery Method Room Air 12/13/24 20:02 Vital Signs Temperature 98.1 F 12/13/24 20:02 Pulse Rate 82 12/13/24 20:02 Respiratory Rate 18 12/13/24 20:02 Blood Pressure 136/89 12/13/24 20:02 Pulse Oximetry 98 12/13/24 20:02 Oxygen Delivery Method Room Air 12/13/24 20:02 Temperature 98.1 F 12/13/24 20:02 Pulse Rate 82 12/13/24 20:02 Respiratory Rate 18 12/13/24 20:02 Blood Pressure 136/89 12/13/24 20:02 Pulse Oximetry 98 12/13/24 20:02 Oxygen Delivery Method Room Air 12/13/24 20:02 Medical Decision Making MDM Narrative Medical decision making narrative: Bleeding in differential would be dental/apical abscess. I do not see evidence for intervention immediately. Probably a good idea to knock down any potential infection in anticipation of her dental follow-up. Did offer immediate pain relief with dental block. She would like to proceed with that. I did place 2 mL of bupivacaine in a buccal block adjacent to and posterior to tooth 7. Tolerated well. Anesthesia was already taking hold prior to departure. See patient discharge plan for further discussion I am happy you are feeling better with the bupivacaine. Please follow-up with the dentist as planned. In the meantime can continue with ibuprofen or acetaminophen. Keep in mind that each tablet of [place] from [facility] contains 325 mg of acetaminophen. Also prescribing penicillin. Discharge Plan Discharge Clinical Impression: Pain, dental Patient Disposition: Home, Self-Care Condition: Improved Additional Instructions: I am happy you are feeling better with the bupivacaine. Please follow-up with the dentist as planned. In the meantime can continue with ibuprofen or acetaminophen. Keep in mind that each tablet of [place] from [facility] contains 325 mg of acetaminophen. Also prescribing penicillin. Prescriptions: No Action gabapentin 100 mg capsule 100 mg PO QDAY dextroamphetamine-amphetamine 10 mg tablet 1 tab PO BID ferrous sulfate 325 mg (65 mg iron) tablet,delayed release (DR/EC) 325 mg PO Q OTHER DAY Qty: 90 1RF norethindrone (contraceptive) [Kathy] 0.35 mg tablet 0.35 mg PO QDAY Qty: 84 2RF Follow Up/Referrals: Provider,Not a Local [Primary Care Provider, Family Practice] Stand Alone Forms: [email or web address] Info Instructions
[2024-12-13] MEDS: BUPIVACAINE 0.25% 30 ML INJECTION (20:40)
--- OUTSIDE RECORDS SUMMARY | 2024-12-13 20:48 | XMS_ITS | Clinical Summary ---
Author Organization [facility] Address [address] [place] [id number] Care Team Providers Care Director Nicu Name Role Phone [facility] are Provider Allergies Active Allergy Reactions Criticality Noted Date Comments Buspirone Other - Describe In Comment Field High 06/02/2022 Suicidal tendencies Cefaclor Hives,Other - Descri be In Comment Field 11/29/2006 Cerner listed no reactions Latex Rash,Hives,Other - Describe In Comment Field 05/15/2014 Blister like looking things Venlafaxine Other - Describe In Comment Field High 06/02/2022 Suicidal tendencies Medications acetaminophen (TYLENOL EXTRA STRGTH) 500 mg tablet Take 500 mg by mouth every 6 hours if needed. Max acetaminophen dose: 4000mg in 24 hrs. Active Adderall XR 20 mg Extended-Relea se capsule Take 20 mg by mouth once daily. 1 Active melatonin 3 mg tablet Take 3 mg by mouth at bedtime. Active ibuprofen (ADVIL; MOTRIN) 600 mg tabletIndicati ons:Closed avulsion fracture of metatarsal bone of right foot, initial encounter Take 1 Tablet (600 mg) by mouth every 6 hours if needed for Pain. Maximum of 3200 mg in 24 hours. 20 Tablet 2 Active ibuprofen (ADVIL; MOTRIN) 600 mg tabletIndicati ons:Injury of head, initial encounter,Stra in of neck muscle, initial encounter Take 1 Tablet (600 mg) by mouth 4 times daily if needed for Pain. Maximum of 3200 mg in 24 hours. 40 Tablet 3 Active lidocaine-ment hol 4-1 % topical patchIndicatio ns:Acute on chronic low back pain Apply 1 Patch on dry, clean, hairless skin once daily. Apply to intact skin to cover most painful area for max 12hr per 24hr period. 14 Patch 5 Active naproxen 500 mg tabletIndicati ons:Acute on chronic low back pain Take 1 Tablet (500 mg) by mouth two times daily. 30 Tablet 5 Active norgestimate-e thinyl estradioL 0.18/0.215/0.2 5-25 mg-mcg tabletIndicati ons:Dysfunctio nal uterine bleeding Take 1 Tablet by mouth once daily for 28 days. Begin after taking 10 days of norethindrone. 28 Tablet 5 025 Active norethindrone 5 mg tabletIndicati ons:Dysfunctio nal uterine bleeding Take 2 Tablets (10 mg) by mouth once daily for 10 days. 20 Tablet 5 025 Active Problems Problem Noted Date Diagnosed Date [...] Encounters Date Type Department Care Team Description 11/30/2024 8:47 PM CDT - 11/30/2024 10:03 PM CDT Emergency [address] [address] Dequan Bernstein MD Dysfunctional uterine bleeding (Primary Dx) Discharge Disposition: Home Self Care 11/30/2024 Travel 11/02/2024 6:19 PM CDT - 11/02/2024 7:21 PM CDT Emergency [facility] [address] [place] [address] Jorje Escamilla DO Lumbar disc disease with radiculopathy (Primary Dx) Discharge Disposition: Home Self Care 11/02/2024 Travel 10/16/2024 12:01 PM CDT - 10/16/2024 1:36 PM CDT Emergency [facility] [address] [place] [address] Darwin Diego MD Acute on chronic low back pain (Primary Dx) Discharge Disposition: Home Self Care 10/16/2024 Travel from Last 3 Months Immunizations Immunization Administration Dates Next Due DTaP 12/04/1996 Hepatitis [...] drink = 0.6 oz pur e alcohol) Interpersonal Safety Answer Date Record ed Are you being hit, kicked, p ushed or yelled at (see row info)? No 11/02/2024 Interpersonal Safety Abuse 12 - 18 Not on file 11/02/2024 Interpersonal Safety Ambulatory Vulnerability No t on file 11/02/2024 Comments No Sex and Gender Information Value Date Recorded Sex Assigned at Not on file Legal Sex Female 5:23 AM OPHTHALMIC TECH Gender Identity Not on file Sexual Orientation Not on file Occupation Industry Job Start Date Job End Date [employer] Not on file Not on file Not on file Obstetrics History Para Term AB IAB SAB Ectopic Multiple Livin g Live Births 2 1 1 0 1 0 1 0 0 1 1 Date Outcome GA Total Labor Labor/2nd/3rd Weight Sex Type Anes PTL Sonali A1 A5 Name Clin SAB 016 Term 38w 0d 3.52 kg (7 lb 12.2 oz) F C-Sec tion Living 3 6 Delivery Location:[facility] Last Filed Vital Signs Vital Sign Reading Time Taken Comments Blood Pressure 126/100 11/30/2024 8:54 PM CDT Pulse 83 11/30/2024 8:54 PM CDT Temperature 36.7 C (98.1 F) 11/30/2024 9:09 PM CDT Respiratory Rate 16 11/30/2024 9:09 PM CDT Oxygen Saturation 96% 11/30/2024 8:54 PM CDT Inhaled Oxygen Concentration - - Weight 103 kg (227 lb) 11/02/2024 6:28 PM CDT Height 154.9 cm (5' 1) 11/02/2024 6:28 PM CDT Body Mass Index 42.89 11/02/2024 6:28 PM CDT Plan of Treatment Health Maintenance Due Date Last Done Comments HIV for age 15-65 11/18/2006 Hepatitis C screening for ag e 18-79 11/18/2009 BMI (ht and wt on same day) for age 18+ 03/05/2017 03/05/2016 Pap test for age 21-65 07/24/2017 07/24/2014 Depression screening for age 12+ 04/14/2022 04/14/2021 COVID-19 vaccine series ( season) 2024 01/21/2021, 12/29/2020 Influenza Vaccine (Season Ended) 2025 04/27/2015, 05/02/2012 Tetanus booster 08/27/2025 08/27/2015, 03/21/2012, 01/27/2003 Hepatitis B series for 19+ Completed 07/09, 01/06/1999, 11/30/1998 Tdap Completed 08/27/2015, 03/21/2012 Pneumococcal series for age 6-49 Aged Out No longer eligible b ased on patient's age to complete this topic Medical Devices Implanted Type Area Screen Printing Machine Operator Device Identifier Shelf Expiration Date Model / Serial / Lot Mesh Ventral 1.7in Ventralex St W/Strap - [id number] Implanted:Qty: 1 on 02/27/2017 by Sunil Monteiro MD at [facility] N/A: Abdomen [employer] 01/11/2019 [id number] / / [id number] Procedures Procedure Name Priority Date/Time Associated Diagnosis Comments URINALYSIS MICROSCOPIC STAT 11/30/2024 9:08 PM CDT URINE STAT 11/30/2024 9:08 PM CDT UA W/ SEDIMENT EXAM REFLEXED PER CRITERIA STAT 11/30/2024 9:08 PM CDT CBC WITH AUTO DIFFERENTIAL STAT 11/30/2024 9:03 PM CDT BASIC METABOLIC PANEL STAT 11/30/2024 9:03 PM CDT CBC WITH AUTO DIFFERENTIAL STAT 11/30/2024 9:03 PM CDT PROFESSIONAL WRESTLER THIN PREP PAP SCREEN IMAGED Routine 07/24/2014 3:45 PM OPHTHALMIC TECH Screening for malignant neoplasm of the cervix from Last 3 Months or Most Recently Relevant to Health Maintenance Results * (ABNORMAL) URINALYSIS MICROSCOPIC (11/30/2024 9:08 PM CDT) RBC >100(A) 0-2, None Seen /HPF 11/30/2024 9:23 PM CDT [facility] WBC 0-2 0-2, 3-5, None Seen /HPF 11/30/2024 9:23 PM CDT [facility] BACTERIA Rare None Seen, Rare, Few Bacteria/H PF 11/30/2024 9:23 PM [facility] EPITHELIAL CELLS Few None Seen, Few Epi/HPF 11/30/2024 9:23 PM [facility] Mucus Present 11/30/2024 9:23 PM [facility] Urine URINE SPECIMEN / Unknown Non-Blood / Unknown 11/30/2024 9:08 PM CDT 11/30/2024 9:11 PM CDT [facility] - 11/30/2024 9:23 PM CDT 3% Acetic acid added to this UA micro to clear RBCs from visual field to enable reporting of other elements. All results, except RBCs, multiplied by 2. us Dequan Bernstein MD URINE Final Res ult [facility] [address] [place] [address] * (ABNORMAL) UA W/ SEDIMENT EXAM REFLEXED PER CRITERIA (11/30/2024 9:08 PM T) COLOR Red(A) Yellow Color 11/30/2024 9:23 PM [facility] CLARITY Turbid(A) Clear Clarity 11/30/2024 9:23 PM [facility] SPECIFIC GRAVITY,URINE 1.025 1.010, 1.015, 1.020, 1.025 11/30/2024 9:23 PM [facility] PH,URINE 6.5 6.0, 7.0, 8.0, 5.5, 6.5, 7.5, 8.5 11/30/2024 9:23 PM [facility] UROBILINOGEN, QUALITATIVE Normal Normal EU/dl 11/30/2024 9:23 PM [facility] PROTEIN, URINE 100(A) Negative mg/dL 11/30/2024 9:23 PM [facility] GLUCOSE, URINE Negative Negative mg/dL 11/30/2024 9:23 PM [facility] KETONES,URINE Trace(A) Negative mg/dL 11/30/2024 9:23 PM CDT [facility] BILIRUBIN,URI NE Negative Negative 11/30/2024 9:23 PM CDT [facility] OCCULT BLOOD,URINE Large(A) Negative 11/30/2024 9:23 PM CDT [facility] NITRITE Negative Negative 11/30/2024 9:23 PM CDT [facility] LEUKOCYTE ESTERASE Negative Negative 11/30/2024 9:23 PM CDT [facility] Urine URINE SPECIMEN / Unknown Non-Blood / Unknown 11/30/2024 9:08 PM CDT 11/30/2024 9:11 PM CDT Dequan Bernstein MD URINE Final Res ult [facility] [address] [place] [address] * URINE (11/30/2024 9:08 PM CDT) ,URIN E Negative Negative 11/30/2024 9:24 PM CDT [facility] Urine URINE SPECIMEN / Unknown Non-Blood / Unknown 11/30/2024 9:08 PM CDT 11/30/2024 9:11 PM CDT Dequan Bernstein MD URINE Final Res ult [facility] [address] [place] [address] * (ABNORMAL) CBC WITH AUTO DIFFERENTIAL (11/30/2024 9:03 PM CDT) WHITE BLOOD COUNT 12.3(H) 4.5 - 11.0 thou/cu mm 11/30/2024 9:09 PM CDT [facility] RED BLOOD COUNT 4.61 4.00 - 5.20 mil/cu mm 11/30/2024 9:09 PM CDT [facility] HEMOGLOBIN 13.9 12.0 - 16.0 g/dL 11/30/2024 9:09 PM [facility] HEMATOCRIT 42.4 33.0 - 51.0 % 11/30/2024 9:09 PM [facility] MCV 92 80 - 100 fL 11/30/2024 9:09 PM [facility] MCH 30.2 26.0 - 34.0 pg 11/30/2024 9:09 PM [facility] MCHC 32.8 32.0 - 36.0 g/dL 11/30/2024 9:09 PM [facility] RDW 13.3 11.5 - 15.5 % 11/30/2024 9:09 PM [facility] PLATELET COUNT 226 140 - 440 thou/cu mm 11/30/2024 9:09 PM [facility] MPV 11.2(H) 6.5 - 11.0 fL 11/30/2024 9:09 PM [facility] % NEUT 60.0 % 11/30/2024 9:09 PM [facility] % LYMPH 32.4 % 11/30/2024 9:09 PM [facility] % MONO 5.9 % 11/30/2024 9:09 PM [facility] % EOS 1.5 % 11/30/2024 9:09 PM [facility] % BASO 0.2 % 11/30/2024 9:09 PM [facility] ABSOLUTE NEUTROPHILS 7.4(H) 1.7 - 7.0 thou/cu mm 11/30/2024 9:09 PM [facility] ABSOLUTE LYMPHOCYTES 4.0(H) 0.9 - 2.9 thou/cu mm 11/30/2024 9:09 PM [facility] ABSOLUTE MONOCYTES 0.7 <0.9 thou/cu mm 11/30/2024 9:09 PM [facility] ABSOLUTE EOSINOPHILS 0.2 <0.5 thou/cu mm 11/30/2024 9:09 PM [facility] ABSOLUTE BASOPHILS 0.0 <0.3 thou/cu mm 11/30/2024 9:09 PM [facility] Blood BLOOD SPECIMEN / Unknown Venipuncture / Unknown 11/30/2024 9:03 PM CDT 11/30/2024 9:06 PM CDT us Dequan Bernstein MD HEMATOLOGY Final Res ult [facility] [address] [place] [address] * BASIC METABOLIC PANEL (11/30/2024 9:03 PM CDT) SODIUM 139 136 - 145 mmol/L 11/30/2024 9:26 PM [facility] POTASSIUM 4.1 3.5 - 5.1 mmol/L 11/30/2024 9:26 PM [facility] CHLORIDE 103 98 - 107 mmol/L 11/30/2024 9:26 PM [facility] CO2,TOTAL 28 22 - 29 mmol/L 11/30/2024 9:26 PM [facility] ANION GAP 8 5 - 18 11/30/2024 9:26 PM [facility] GLUCOSE 92 70 - 99 mg/dL 11/30/2024 9:26 PM [facility] CALCIUM 9.4 8.8 - 10.4 mg/dL 11/30/2024 9:26 PM [facility] Comment: Reference ranges for this test were updated on 05/21/2024 to reflect our healthy population more accurately. Reference range changes are not retroactively applied to results, but previous results using the same methodology can be interpreted in the context of the new reference range. BUN 13 6 - 20 mg/dL 11/30/2024 9:26 PM [facility] CREATININE 0.74 0.50 - 0.90 mg/dL 11/30/2024 9:26 PM [facility] BUN/CREAT RATIO 18 10 - 20 9:26 PM [facility] eGFR >90 >90 mL/min/1.7 3m2 11/30/2024 9:26 PM CDT [facility] Comment:As of 2021, eG FR is calculated by the CKD-EPI creatinine equation without race adjustment. eGFR can be influenced by muscle mass, exercise, and diet. The reported eGFR is an estimation only and is only applicable if the renal function is stable. Blood BLOOD SPECIMEN / Unknown Venipuncture / Unknown 11/30/2024 9:03 PM CDT 11/30/2024 9:06 PM CDT us Dequan Bernstein MD CHEMISTRY Final Res ult Performing Organization Address City/[facility]/ZIP Co de Phone Number [facility] [address] [place] [address] * PROFESSIONAL WRESTLER THIN PREP PAP SCREEN IMAGED (07/24/2014 3:45 PM OPHTHALMIC TECH) PROFESSIONAL WRESTLER CYTOLOGY See Anatomic Pathology case 07/30/2014 11:04 AM OPHTHALMIC TECH [facility] Specimen (specimen) (Cervical/Vagina l) Non-Blood / Unknown 07/24/2014 3:45 PM OPHTHALMIC TECH 07/25/2014 10:09 AM OPHTHALMIC TECH us TreasurePerla Kumar PATHOLOGY/CYTOLOGY Final Resu lt Performing Organization Address City/[facility]/ZIP Co de Phone Number [facility] [address] [place] [address], from Last 3 Months or Most Recently Relevant to Health Maintenance [place] [address] [employer] [id number] [place] [id number] Advance Directives * Full Code (Latest Code [...] 11:08 AM 11/11/2015 1:19 PM Care Teams Director Nicu Relationship Specialty Start Date End Date [facility] [address] [place] [address] PCP - General 04/23/24
--- OUTSIDE RECORDS SUMMARY | 2024-12-13 20:48 | XMS_ITS | Patient Health Record ---
Author Organization [facility] Address [address] [place] [address] [address] [place] [address] Care Team Providers Care Open End Spinning Operator Name Role Phone [place], López Primary Care Provider [phone] Lior SONI PhD, Ino Unavailable Unavailable Thom Cespedes Unavailable [phone] Max Mak Unavailable [phone] Allergies Allergen (clinical drug ingredient) Drug/Non Drug Allergy documented on EMR Reaction Allergy Type Onset Date Status cefaclor ceclor (uncoded) rash Allergy Act karen Effexor Unknown Drug Allergy Active buspirone Buspirone Unknown Drug Allergy Active Reason For Referral No Information Medications Medication SIG (Take, Route, Fr equency, Duration) Notes Start Date End Date Status Ibuprofen 200 MG 1 tablet with food o r milk as needed Orally Three times a day Not-Taking Gabapentin 600 MG Oral for 30 Days Active Naproxen 500 MG TAKE ONE TABLET BY M OUTH TWICE A DAY Oral for 15 Days Not-Takin g Adderall 20 MG 1 tablet Orally Once a day Active Meloxicam 7.5 MG 1 tablet Orally Once a day for 30 days (Do not take with other NSAIDs) 10/22/2024 Active Social History Tobacco Use: Social History Observation Description Date Details (start date - stop date) Never Smoker NA - NA Tobacco Control (Standard) Question Answer Notes Tobacco use: Nonsmoker Additional Findings: Tobacco non-user Current no nsmoker AUDIT-C (Standard) Question Answer Notes Did you have a drink containing alcohol in the p ast year? No Points 0 Interpretation Negative Problems Problem Type SNOMED Code ICD Code Onset Dates Problem Status W/U Status Risk Notes Problem Chronic pain (06651609) Other chronic pain (G89.29) Active confirmed Problem Lumbar radiculopathy (515869552) Radiculopathy, lumbar region (M54.16) Active confirmed Problem Lumbosacral radiculopathy (3789743) Radiculopathy, lumbosacral region (M54.17) Active confirmed Vital Signs Heart Rate 77 /min 07/05/2024 Temperature 98.6 degrees Fahrenheit 07/05/2024 Respiratory Rate 16 /min 07/05/2024 Oximetry 100 % 07/05/2024 Blood pressure diastolic 96 mm Hg 10/22/2024 Height 61 in 10/22/2024 Blood pressure systolic 134 mm Hg 10/22/2024 Weight 222.6 lbs 10/22/2024 BMI 42.06 kg/m2 10/22/2024 Encounters Encounter Location Date Provider Diagnosis [facility] [address] [place] [address] [address] [place] [address] 06/28/2024 López Nazario [facility] [address] [place] [address] [address] [place] [address] 07/25/2024 López Nazario [facility] [address] [place] [address] [address] [place] [address] 08/08/2024 López Nazario [facility] [address] [place] [address] [address] [place] [address] 09/26/2024 López Nazario [facility] [address] [place] [address] [address] [facility] [place] [address] 10/04/2024 Thom Cespedes [facility] [address] [place] [address] [address] [place] [address] 10/14/2024 López Nazario [facility] [address] [place] [address] [address] [place] [address] 10/15/2024 López Nazario [address] [facility] [address] [place] [address] 10/22/2024 López Nazario [facility] [address] [place] [address] [address] [place] [address] 11/04/2024 López Nazario [address] [facility] [address] [place] [address] 10/22/2024 López Nazario Other chronic pain G89.29 ; Radiculopathy, lumbosacral region M54.17 and Radiculopathy, lumbar region M54.16 [address] [facility] [address] [place] [address] 10/03/2024 Thom Cespedes Radiculopathy, lumbosacral region M54.[address] [place] [address] 07/08/2024 López Nazario [address] [facility] [address] [place] [address] 08/13/2024 López Nazario Radiculopathy, lumbosacral region M54.17 [address] [facility] [address] [place] [address] 11/05/2024 López Nazario Radiculopathy, lumbosacral region M54.[address] [place] [address] 07/05/2024 López Nazario Assessments Encounter Date Diagnosis (ICD Code) Assessment Notes Treatment Notes Treatment Clinical Notes Section Notes 11/05/2024 Radiculopathy, lumbosacral region (ICD-10 - M54.17) 10/22/2024 Other chronic pain (ICD-10 - G89.29) Yissel presents to the clinic for an evaluation regarding her chronic low back, bilateral lower extremity pain/tingling pain. Based on review of her recent lumbar imaging, I recommend a left S1 TFE and right L4-5 TFE to treat her radicular pain. I explained this procedure and answered her questions to her satisfaction. She expressed interest, therefore I placed the orders accordingly. I have reviewed her symptoms and current medications. I checked the [facility] database and I did not find any inconsistencies. I have advised her to start by tapering Gabapentin by 600MG every week until off. Additionally, I will start her on Meloxicam as she saw previous benefit with Naproxen. I have advised her not to take this with other NSAIDs. I will consider Topamax, Lyrica, and Cymbalta as alternative neuropathics for improved relief pending results from current medication management. This treatment plan was reviewed with Yissel, and she was agreeable. She will return as needed for further evaluation or sooner if needed. I will continue to monitor her progress, adjusting her treatment plan as necessary. Plan: 1. Reviewed recent lumbar imaging 2. Order Left SI TFE, Right L4-5 TFE 3. Taper Gabapentin by 600MG every week until off 4. Start Meloxicam 7.5MG QD 5. Consider Topamax, Lyrica, Cymbalta 6. Follow up as needed Discharge instructions reviewed verbally. Discussed the risks/benefits of prescribed medication. The patient was instructed to return to the office as scheduled and call with any questions, problems or concerns. 04/25/2024 Lumbar MRI ([facility]) IMPRESSION: 1. Chronic bilateral L5 spondylolysis and grade 2 L5-S1 anterolisthesis, paired with moderate to advanced degeneration at this level contributes to significant spinal canal and neuroforaminal stenosis as described. 05/09/2024 DX Lumbar ([facility]) IMPRESSION: Comparison with radiographs 05/24/2017 and MRI 04/25/2024. Lateral flexion and extension images obtained. Accentuation of usual lumbar lordosis with anterolisthesis of L5 on S1 redemonstrated. Bilateral L5-S1 pars interarticularis defects. No appreciable alteration of alignment across flexion or extension. Intervertebral disc space narrowing L4-L5 and L5-S1. 07/03/[address] ([facility]) IMPRESSION: 1. Severe central stenosis at L5-S1 disc space and behind upper S1. Exaggerated lumbosacral angle and grade 2 anterolisthesis of L5 on S1 associated with hypoplastic left deformed S1 superior articular processes. 2. Moderate L5-S1 foraminal stenosis. 3. Moderate central stenosis at L4-5 with disc herniation impinging the dural sac along with hypertrophic facet changes. 4. No acute fractures identified. 08/19/2024 Scoliosis XR ([facility]) IMPRESSION: 1. Lumbosacral hyperlordosis with a 20 mm spondylolisthesis at L5-S1. 2. L5-S1, L4-5 and L3-4 disc degeneration. 3. No sagittal imbalance. 4. 22.4 degree thoracolumbar scoliosis without coronal imbalance. 10/22/2024 Radiculopathy, lumbosacral region (ICD-10 - M54.17) 10/03/2024 Radiculopathy, lumbosacral region (ICD-10 - M54.17) 08/13/2024 Radiculopathy, lumbosacral region (ICD-10 - M54.17) 10/22/2024 Radiculopathy, lumbar region (ICD-10 - M54.16) 07/05/2024 Other The patient is medically appropriate for a procedure at [facility] and wishes to proceed. Ok to [place] with [place] [facility] [place] 10/22/2024 Other I, Michelle Bañuelos, am serving as a scribe to document services personally performed by López Nazario MD, based upon my observations and the provider's statements to me. All documentation has been reviewed by the aforementioned doctor prior to being entered into the official medical record. I, López Nazario MD attest that the above named individual is acting in scribe capacity, has observed my performance of the services and has documented them in accordance with my direction. The documentation recorded by the scribe accurately reflects the service I personally performed and the decisions made by him. We would like to thank Dr. Tinajero for referring Yissel to us today. It has been a pleasure to participate in her care. Please feel free to contact me if you have any questions. Plan Of Treatment No Information Insurance Providers Payer Name Payer Address Payer Phone Subscriber Number Group Number Insured Name Patient Relationship to Insured Coverage Start Date Coverage End Date [facility] [address] [place] [address] [id number] Yissel Garcia Self - patient is the insured Medical (General) History Medical History History ICD Code Anxiety Bipolar Depression Hernia Headaches Surgical History Surgery Date(Month/Year) Umbilical Hernia repair x2 07/2016 07/2015 Hospitalization History Reason Date(Month/Year) Broken Right Foot Surgical
--- OUTSIDE RECORDS SUMMARY | 2024-12-13 20:48 | XMS_ITS | Clinical Summary ---
Author Organization [facility] Address [address] [place] [address] Care Team Providers Care Chief Service Observer Name Role Phone Yamilet Goodson M.D. Primary Care Provider Source Comments Patient records contain information from all sites at [facility]. For routine questions regarding patient records, call [phone] during business hours, M-F 8:00 AM - 5:00 PM Central Time. Record requests for emergency care only can be directed to [phone] at any time.[facility] Allergies Active Allergy Reactions Criticality Noted Date Comments Buspirone Other (see comments) High 06/02/2022 Suicidal tendencies Cefaclor Other (see comments) 07/31/2014 Cerner listed no reactions Venlafaxine Other (see comments) High 06/02/2022 Suicidal tendencies Latex Hives (Reselect Reaction),Other (see comments) 12/03/2014 Blister like looking things Medications * This document contains information received from the source organization and may not represent a complete record from that organization. acetaminophen (TYLENOL) 500 mg tablet Take 500 mg by mouth every 6 (six) hours as needed for pain. Active SUMAtriptan (IMITREX) 50 mg tablet Take 1 tablet (50 mg total) by mouth as needed for migraine. May repeat dose once in 2 hours if migraine unresolved. Do not exceed 200 mg in 24 hours. 27 tablet 3 2 Active amphetamine-dext roamphetamine (ADDERALL XR) 10 mg 24 hr capsuleIndicatio ns:Attention Deficit Disorder Inattentive Take 2 capsules (20 mg total) by mouth daily. 30 capsule 2 Active ARIPiprazole (Abilify) 5 mg tablet daily. 4 Active ibuprofen 600 mg tablet Take 600 mg by mouth 4 (four) times a day as needed. 3 Active dextroamphetamin e-amphetamine (AdderalL) 5 mg tablet as needed. 4 Active dextroamphetamin e-amphetamine (AdderalL) 20 mg tablet Take 2 tablets by mouth 2 (two) times a day. 4 Active tiZANidine (Zanaflex) 4 mg tabletIndication s:Pain Back Lumbar,Pain Low Back Unspecified Take 1 tablet (4 mg total) by mouth every 6 (six) hours as needed for muscle spasms. 30 tablet 4 Active gabapentin (Neurontin) 300 mg capsule Start by taking 1capsules per day and titrate, using the Fast Track titration calender, to 3 times per day- to maximal dose of 3,600mg/day 270 capsule 2 4 Active norethindrone (Aygestin) 5 mg tablet 4 Active ferrous sulfate 325 mg (65 mg iron) DR tablet Take 1 tablet by mouth every other day. 4 Active gabapentin (Neurontin) 600 mg tablet Take 2 tablets, 3 times per day (3,600 mg/day) 270 tablet 1 5 Active Active Problems Problem Noted Date Diagnosed Date Fracture Metatarsal Bone Closed Subsequent Right 01/26/2022 Fracture Foot Fifth Metatars al Nondisplaced Closed Initial Right 12/15/2021 Anxiety Generalized Disorder 05/12/2020 Depression Major Recurrent Moderate 05/12/2020 Neuropathy Ulnar Left 05/07/2018 Overview (05/07/2018): Added automatically from request for surgery [id number] Pain Back Lumbar 11/27/2017 Attention Deficit Disorder Inattentive 7 Borderline Personality Disorder 07/05/2012 Resolved Problems Problem Noted Date Diagnosed Date Resolved Date History Of Falling 02/25/2022 3 Abuse Tobacco Smoking 03/17/20162020 Abuse Drug Remission 04/02/2015 021 Other Specified Behavioral A nd Emotional Disorders With Onset Usually Occurring In Childhood And Adolescence 02/19/2015 05/24/2017 Overview (05/24/2017): Disorder Attention Deficit Hyperactive (ADHD) Encounters Date Type Department Care Team Description 12/13/2024 Refill Department of Physical Medicine and Rehabilitation in [place], [place] [address] [phone] Russell Reyes M.D. Med Refill from Last 3 Months Immunizations Immunization Administration Dates Next Due 4vHPV (discontinued) 07/06/2007,03/05/2007,12/29 DTaP (Infanrix, [employer]edia) 12/04/1996 HepA, Unspecified 04/17/2013 HepB, Unspecified 07/09/1999,01/06/1999,11/30/18 99 Influenza TIV (IM) 05/02/2012 Influenza, Seasonal, Injectable 05/03/2012 Influenza, Unspecified 05/19/2017,04/27/2015 MMR 01/27/2003 OPV 12/04/1996 Rho (D) Immune Globulin (IM only) 08/27/2015 Td (Adult), adsorbed 01/27/2003 Tdap 08/27/2015,03/21/2012 SONYA 12/04/1996 influenza vaccine quad (FLUZ ONE/FLUARIX) (6 months and older)(PF) 04/27/2018 Family History Medical History Relation Name Comments Asthma Aunt Maternal Asthma Brother Soledad Learning disorder Brother [place] Both my br other and i have dyslexia Diabetes Maternal Grandfather Kelvin Obesity Maternal Grandfather Kelvin Skin cancer Maternal Grandmother Madelon Arthritis Mother Dianne Hypothyroidism Mother Dianne Thyroid disease Mother Dianne Asthma Mother's Sister 1 Camila Passed marlon y from asthma Obesity Mother's Sister 2 Gale Migraines Sister Relation Name Status Comments Aunt Maternal Brother Soledad Maternal Grandfather Kelvin Maternal Grandmother Madelon Mother Dianne Alive Mother's Sister 1 Camila Mother's Sister 2 Gale Sister Social History Tobacco Use Types Packs/Day Years Used Date Smoking Tobacco: Former Cigarettes 0.3 11 Smokeless Tobacco: Never Tobacco Cessation:Counseling Given: Not Answered Alcohol Use Standard Drinks/Week Comments No 0 (1 standard drink = 0.6 oz pur e alcohol) [facility] Utilities Answer Date Recorded In the past 12 months has e electric, gas, oil, or water company threatened to shut off services in your home? Patient declined 03/14/2024 Humiliation, Afraid, Rape, and Kick questionnair e Answer Date Recorded Within the last year, have y ou been afraid of your partner or ex-partner? No 09/21/2022 Within the last year, have y ou been humiliated or emotionally abused in other ways by your partner or ex-partner? No Within the last year, have y ou been kicked, hit, slapped, or otherwise physically hurt by your partner or ex-partner? No 09/21/2022 Within the last year, have y ou been raped or forced to have any kind of sexual activity by your partner or ex-partner? No 09/21/2022 Social Connection and Isolat ion Panel [NHANES] Answer Date Recorded In a typical week, how many times do you talk on the phone with family, friends, or neighbors? More than three times a week 09/21/2022 How often do you get togethe r with friends or relatives? More than three times a week 09/21/2022 How often do you attend chur ch or sikhism services? Never 09/21/2022 Do you belong to any clubs o r organizations such as zoroastrian groups, unions, fraternal or athletic groups, or school groups? No 09/21/2022 How often do you attend meet ings of the clubs or organizations you belong to? Never 09/21/2022 Are you , , di vorced, , never , or living with a partner? 09/21/2022 AUDIT-C Answer Date Recorded Q1: How often do you have a drink containing alc ohol? Never 09/21/2022 Average Number of Drinks Not on file 023 Frequency of Binge Drinking Not on file 02/2023 Overall Financial Resource Strain (CARDIA) Answe r Date Recorded How hard is it for you to pa y for the very basics like food, housing, medical care, and heating? Not hard at all 09/21/2022 PHQ-2 Answer Date Recorded PHQ-2 Score 0 03/14/2024 [facility] [place] [facility] - Occupational Stress Questionnaire Answer Date Recorded Do you feel stress - tense, restless, nervous, or anxious, or unable to sleep at night because your mind is troubled all the time - these days? Not at all 09/21/2022 Exercise Vital Sign Answer Date Recorde d On average, how many days pe r week do you engage in moderate to strenuous exercise (like a brisk walk)? 5 days 03/14/2024 On average, how many minutes do you engage in exercise at this level? 120 min 03/14/2024 Hunger Vital Sign Answer Date Recorded Within the past 12 months, y ou worried that your food would run out before you got the money to buy more. Never true 03/14/20 24 Within the past 12 months, t he food you bought just didn't last and you didn't have money to get more. Never true 03/14/2024 PRAPARE - Transportation Answer Date Re corded In the past 12 months, has l ack of transportation kept you from medical appointments or from getting medications? No 02/15 In the past 12 months, has l ack of transportation kept you from meetings, work, or from getting things needed for daily living? No 03/14/2024 Depression Answer Date Recor ded PHQ-9 Total Score (max 27) 27 04/09 Nutrition Answer Date Recorded On average, how many serving s of fruits and vegetables do you eat per day (serving size is equal to 1 cup or approximately the size of a tennis ball)? 5 or more 03/14/2024 Dental Answer Date Recorded Dental: Regular Dentist No 03/14/20 Employment Answer Date Recorded Employment status Employed and actively working without restrictions 03/14/2024 Housing Stability Answer Date Recorded What is your living situation today? I have a [facility] place to live 03/14/2024 Education Answer Date Recorded What is the highest level of school you have completed or the highest degree you have received? 12th grade 02/26/2019 Comments Unknown Sex and Gender Information Value Date Recorded Sex Assigned at Female 05/24/2017 3:26 PM HEALTH INFORMATION CODER Legal Sex Female 1:58 PM HEALTH INFORMATION CODER Gender Identity Female 05/24/2017 3:26 PM HEALTH INFORMATION CODER Sexual Orientation Straight 05/24/2017 3: 26 PM HEALTH INFORMATION CODER Last Filed Vital Signs Vital Sign Reading Time Taken Comments Blood Pressure 144/97 06/06/2024 10:20 AM HEALTH INFORMATION CODER Pulse 83 06/06/2024 10:20 AM HEALTH INFORMATION CODER Temperature 37 C (98.6 F) 06/06/2024 10:20 AM HEALTH INFORMATION CODER Respiratory Rate 16 03/14/2024 1:50 PM CDT Oxygen Saturation 100% 06/06/2024 10:20 AM HEALTH INFORMATION CODER Inhaled Oxygen Concentration - - Weight 94 kg (207 lb 5.4 oz) 03/14/2024 1:50 PM CDT Height 155 cm (5' 1.02) 03/14/2024 1:50 PM CDT Body Mass Index 39.15 03/14/2024 1:50 PM CDT Plan of Treatment Health Maintenance Due Date Last Done Comments IPV Vaccines (2 of 3 - 4-dose series) 01/01/1997 12/04/1996 Varicella Vaccines (2 of 2 - 2-dose childhood series) 02/26/1997 12/04/1996 Hepatitis A Vaccines (2 of 2 - Risk 2-dose series) 10/16/2013 04/17/2013 COVID-19 Vaccine ( season) 2024 01/21/2021, 12/29/2020 Influenza Vaccine (#1) 2024 8, 05/19/2017, 04/27/2015, Additional history exists Depression Screening (Annual PHQ-2) 07/17/2024 03/14/2024 Glucose Test for Med Monitoring 04/23/2025 04/23/2024, 02/23/2023, 01/31/2023, Additional history exists DTaP,Tdap,and Td Vaccines (5 - Td or Tdap) 08/27/2025 08/27/2015, 03/21/2012, 01/27/2003, Additional history exists Cervical/Vaginal Cancer Screening 01/07/2027 01/07/2022, 01/07/2022, 02/26/2019, Additional history exists Hepatitis B Vaccines Completed 07/09/1999, 01/06/1999, 11/30/1998 HPV Vaccines Completed 07/06/2007, 02/15, 12/29/2006 HIV Screening Completed 08/05/2021, 04/28/2015 Hepatitis C Screening Completed 08/05/2021 Pneumococcal vaccine (0-49 years) Aged Out No longer eligible based on patient's age to complete this topic Procedures Procedure Name Priority Date/Time Associated Diagnosis Comments HEMOGLOBIN A1C, B Routine 01/31/2023 2:3 2 PM CDT Abnormal Uterine And Vaginal Bleeding Unspecified HPV WITH GENOTYPING, PCR, THINPREP Routine 01/07/2022 2:20 PM CDT HCV AB SCRN W/REFLEX TO HCV PCR, S Routine 08/05/2021 11:11 AM HEALTH INFORMATION CODER Screening For Venereal Disease HIV-1/-2 AG AND AB SCREEN, PLASMA Routine 08/05/2021 11:11 AM HEALTH INFORMATION CODER Human Immunodeficiency Virus Screening from Last 3 Months or Most Recently Relevant to Health Maintenance Results * Hemoglobin A1c (01/31/2023 2:32 PM CDT) Hemoglobin A1c, B 5.3 4.2 - 5.6 % 01/31/2023 3:58 PM CDT [facility] Blood (Blood, Venous) 01/31/2023 2:32 PM CDT 01/31/2023 2:37 PM CDT Emma Khan APRN, C.N.P., D.N.P. LAB BLOOD ADD-ON Final Result [facility] [address] [place] [address], [facility] in [place] [address] [place] [address] * HPV with Genotyping, PCR, ThinPrep (01/07/2022 2:20 PM CDT) HPV with Genotyping, ThinPrep, PCR Negative Negative 01/11/2022 11:34 AM CDT [facility] Comment: Negative for high risk HPV by nucleic acid amplification. The following high risk HPV types were not detected: 16, 18, 31, 33, 35, 39, 45, 51, 52, 56, 58, 59, 66, and 68 Varies 01/07/2022 2:20 PM CDT 01/10/2022 6:34 AM CDT us Karly Spears R.N. LAB MICROBIOLOGY - GENERAL MERLIN RAMIREZ Final Result [facility] [address] [place] [address], [place] [facility] [place] [address] [place] [address] * HIV-1/-2 Ag and Ab Screen, Plasma (08/05/2021 11:11 AM HEALTH INFORMATION CODER) HIV Ag/Ab Screen, P Negative Negative 08/06/2021 9:24 PM HEALTH INFORMATION CODER [facility] Comment: Negative result does not rule out HIV infection. If exposure to HIV infection occurred <14 days ago, contact the laboratory to request addition of HIV-1 RNA detection / quantification test. HIV-1 p24 Ag Screen, P Negative Negative 08/06/2021 9:24 PM HEALTH INFORMATION CODER [facility] Comment: Negative result does not rule out HIV infection. If exposure to HIV infection occurred <14 days ago, contact the laboratory to request addition of HIV-1 RNA detection / quantification test. HIV-1 Ab Screen, P Negative Negative 2021 9:24 PM HEALTH INFORMATION CODER [facility] Comment: Negative result does not rule out HIV infection. If exposure to HIV infection occurred <14 days ago, contact the laboratory to request addition of HIV-1 RNA detection / quantification test. HIV-2 Ab Screen, P Negative Negative 2021 9:24 PM HEALTH INFORMATION CODER [facility] Comment: Negative result does not rule out HIV infection. If exposure to HIV infection occurred <14 days ago, contact the laboratory to request addition of HIV-1 RNA detection / quantification test. Blood (Blood, Venous) 08/05/2021 11:11 AM HEALTH INFORMATION CODER 08/05/2021 3:35 PM HEALTH INFORMATION CODER us Irving J Bakewell INGOT WEIGHER, C.N.P. LAB MICROBIOLOGY - B LOOD ORDERABLES Final Result [facility] [address] [place] [address], [facility] [place] [address] [place] [address] * HCV Ab Scrn w/Reflex to HCV PCR, Serum (08/05/2021 11:11 AM HEALTH INFORMATION CODER) HCV Ab Screen, S Negative Negative 08/06/2021 9:52 AM HEALTH INFORMATION CODER [facility] Comment:[id number] rat io is <1.00. Blood (Blood, Venous) 08/05/2021 11:11 AM HEALTH INFORMATION CODER 08/06/2021 7:17 AM HEALTH INFORMATION CODER Irving Thibodeaux APRN, C.N.P. LAB MICROBIOLOGY - B LOOD ORDERABLES Final Result [facility] [address] [place] [address] [facility] Dept. of Laboratory Medicine and Pathology [address] [place] [address] from Last 3 Months or Most Recently Relevant to Health Maintenance Insurance [employer] [id number] Care Teams Chief Service Observer Relationship Specialty Start Date End Date Yamilet Goodson M.D. [address] [place] [address] [place] [phone] PCP - General Family Medicine 03/15/24
--- OUTSIDE RECORDS SUMMARY | 2024-12-13 20:48 | XMS_ITS | Encounter Summary ---
Author Organization [facility] Address [address] [place] [address] Care Team Providers Care Dural Mechanic Name Role Phone Yamilet Goodson M.D. Primary Care Provider Reason for Visit * Reason Onset Date Comments Med Refill 12/13/2024 Encounter Details Date Type Department Care Team (Late st Contact Info) Description 12/13/2024 Refill Department of Physical Medicine and Rehabilitation in [place], [place] [address] [phone] Russell Reyes M.D. [address] [phone] Med Refill Social History Tobacco Use Types Packs/Day Years Used Date Smoking Tobacco: Former Cigarettes 0.3 11 Smokeless Tobacco: Never Alcohol Use Standard Drinks/Week Comments No 0 (1 standard drink = 0.6 oz pur e alcohol) [facility] Utilities Answer Date Recorded In the past 12 months has [employer], gas, oil, or water [employer] threatened to shut off services in your [...] often do you attend chur ch or congregation services? Never 09/21/2022 Do you belong to any clubs o r organizations such as restorationist groups, unions, fraternal or athletic groups, or [...] Answer Date Recorded PHQ-2 Score 0 03/14/2024 [facility] [place] [facility] - Occupational Stress Questionnaire Answer Date Recorded [...] money to buy more. Never true 03/14/20 Within the past 12 months, t he [...] your living situation today? I have a [facility] place to live 03/14/2024 Education Answer Date Recorded What is the highest level of school you have completed or the highest degree you have received? 12th grade 02/26/2019 Comments Unknown Sex and Gender Information Value Date Recorded Sex Assigned at Female 05/24/2017 3:26 PM MUSEUM EDUCATOR Legal Sex Female 1:58 PM MUSEUM EDUCATOR Gender Identity Female 05/24/2017 3:26 PM MUSEUM EDUCATOR Sexual Orientation Straight 05/24/2017 3: 26 PM MUSEUM EDUCATOR documented as of this encounter Plan of Treatment Not on file documented as of this encounter Visit Diagnoses Not on filedocumented in this encounter Additional Health Concerns Assessment Noted Time PHQ-9 Depression Total Score: 27 021 2:54 PM CDT documented as of this encounter Care Teams Dural Mechanic Relationship Specialty Start Date End Date Yamilet Goodson M.D. [address] [place] [address] [place] [phone] PCP - General Family Medicine 03/15/24 documented as of this encounter
[2024-12-13 21:00] VITALS: BP 125/74; PULSE 79; RESP 18; TEMP 36.7; O2SAT 98
== END 2024-12-13 23:03 | disposition home or self-care (01) ==
PROVIDERS: Emergency Provider Family Medicine
DX: K08.89 Other specified disorders of teeth and supporting structures (principal)
CPT/HCPCS: 99283; J0665